=== PATIENT | female | born 1995 | race American Indian/Alaskan Native ===

== ENCOUNTER 2021-05-27 17:12 | Inpatient (IN) | payer MEDICAID ==
--- NOTE | 2021-05-27 18:01 | History and Physical Report ---
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 Risk Factors: Smoked Tobacco Use: Former smoker Cigarettes: Yes Year Quit: 10/2020 Smokeless Tobacco Use: Never Passive Smoke Exposure: no HIV High Risk Behavior: no Exercise: no Seatbelt Use: 100 % Alcohol Use: no Drug Use: no Past Medical History NEO Exposure: negative Infertility: negative Uterine Anomaly: negative Uterine Surgery (not C/S): negative Other Gynecologic Problems: negative Medical History Comments: neg Family Hx: DM-MGF CHF-mother Social Hx: single fob [employer] service Infection History Hx of STD: none HIV Risk Eval: no Varicella/Chicken Pox Status: Previous Disease Genetic History Congenital Heart Defect: Mom: no Dad: no Juliet Disease: Mom: no Dad: no Thalassemia Mom: no Dad: no Neural Tube Defect Mom: no Dad: no Down's Syndrome Mom: no Dad: no Jesus Manuel-Sachs Mom: no Dad: no Sickle Cell Disease/Trait Mom: no Dad: no Hemophilia Mom: no Dad: no Muscular Dystrophy Mom: no Dad: no Cystic Fibrosis Mom: no Dad: no [place] Chorea Mom: no Dad: no Mental Retardation Mom: no Dad: no Fragile X Mom: no Dad: no Other Genetic/Chromosomal Disorder Mom: no Dad: no Child w/other defect Mom: no Dad: no Enviromental Exposures Xray Exposure: no Medication, drug, or alcohol use since LMP: no Chemical/Other Exposure: no Exposure to Cat Liter: no Hx of Parvovirus (Fifth Disease): no Occupational Exposure to Children: none Active Medications (reviewed today): vitamin #49-iron-FA 6.75 mg iron- 200 mcg tablet ( vitamin #49-iron-fa) Tylenol 325 mg tablet (acetaminophen) aspirin 81 mg capsule (aspirin) ursodiol 300mg BID Current Allergies (reviewed today): No known allergies Past History Past Medical History: other (see HPI) Past Surgical History: other (see HPI) [employer] HELPER History: other (see HPI) Family/Genetic History: other (see HPI) Social history: other (see HPI) - Obstetrical History Expected Date of Delivery: 06/17/21 Actual Gestation: 37 Week(s) 0 Day(s) : 1 Para: 0 Hx # Term Pregnancies: 0 Number of Pregnancies: 0 Spontaneous Abortions: 0 Induced : 0 Number of Living Children: 0 Review of Systems All systems: negative Genitourinary: no vaginal bleeding, no leakage of fluid, no genital sores, no contractions - Physical Exam Breasts: Positive: deferred Lungs: Positive: Normal air movement Abdomen: Positive: normal appearance, soft. Negative: distention, tenderness, guarding Genitourinary (Female): Positive: normal external genitalia Vulva: both: normal Vagina: Positive: normal moisture Uterus: Positive: normal size, normal contour, other (gravid) - Obstetrical FHR comments: RN requested to apply efm and toco monitors Uterine Contraction Monitor Mode: Palpation Cervical Dilatation: 1 ( presentation cephalic) Cervical Effacement Percentage: 50 station: -3 Uterine Contraction Pattern: Absent Uterine Tone Measurement Phase: Resting Results All other labs normal. Tests: (1) Ct, Ng, Trich vag by YOUNG ([id number]) Order Note: Clinical Information: SRC:VR SRC:UR Chlamydia by YOUNG Negative Negative *1 Gonococcus by YOUNG Negative Negative *2 Trich vag by YOUNG Negative Negative *3 Tests: (2) Strep Gp B YOUNG ([id number]) ! Strep Gp B YOUNG Negative Negative *4 Tests: (1) Profile I ([id number]) Order Note: Clinical Information: SRC:UR HBsAg Screen Negative Negative *1 RPR Non Reactive Non Reactive *2 Rubella Antibodies, IgG [L] <0.90 index Immune >0.99 *3 Non-immune <0.90 Equivocal 0.90 - 0.99 Immune >0.99 ABO Grouping O *4 Rh Factor Positive *5 Please note: Prior records for this patient's ABO / Rh type are not available for additional verification. Antibody Screen Negative Negative *6 WBC [H] 13.6 x10E3/uL 3.4-10.8 *7 RBC 4.70 x10E6/uL 3.77-5.28 *8 Hemoglobin 12.8 g/dL 11.1-15.9 *9 Hematocrit 39.3 % 34.0-46.6 *10 MCV 84 fL 79-97 *11 MCH 27.2 pg 26.6-33.0 *12 MCHC 32.6 g/dL 31.5-35.7 *13 RDW 12.6 % 11.7-15.4 *14 Platelets 370 x10E3/uL 150-450 *15 Neutrophils 79 % Not Estab. *16 Lymphs 14 % Not Estab. *17 Monocytes 4 % Not Estab. *18 Eos 3 % Not Estab. *19 Basos 0 % Not Estab. *20 ! Immature Cells <No Reported Value> *21 Neutrophils (Absolute) [H] 10.6 x10E3/uL 1.4-7.0 *22 Lymphs (Absolute) 2.0 x10E3/uL 0.7-3.1 *23 Monocytes(Absolute) 0.6 x10E3/uL 0.1-0.9 *24 Eos (Absolute) 0.4 x10E3/uL 0.0-0.4 *25 Baso (Absolute) 0.1 x10E3/uL 0.0-0.2 *26 ! Immature Granulocytes 0 % Not Estab. *27 ! Immature Grans (Abs) 0.0 x10E3/uL 0.0-0.1 *28 ! NRBC <No Reported Value> *29 Hematology Comments: <No Reported Value> *30 Tests: (2) Comp. Metabolic Panel (14) ([id number]) Glucose 92 mg/dL 65-99 *31 BUN [L] 5 mg/dL 6-20 *32 Creatinine [L] 0.56 mg/dL 0.57-1.00 *33 ! eGFR If NonAfricn Am 128 mL/min/1.73 >59 *34 ! eGFR If Africn Am 148 mL/min/1.73 >59 *35 In accordance with recommendations from the NKF-ASN Task force, [facility] is in the process of updating its eGFR calculation to the 2020 CKD-EPI creatinine equation that estimates kidney function without a race variable. BUN/Creatinine Ratio 9 9- *36 Sodium 137 mmol/L 134-144 *37 Potassium 3.9 mmol/L 3.5-5.2 *38 Chloride 102 mmol/L 96-106 *39 Carbon Dioxide, Total 21 mmol/L 20-29 *40 Calcium 9.0 mg/dL 8.7-10.2 *41 Protein, Total [L] 5.8 g/dL 6.0-8.5 *42 Albumin [L] 3.1 g/dL 3.9-5.0 *43 Globulin, Total 2.7 g/dL 1.5-4.5 *44 A/G Ratio [L] 1.1 1.2-2.2 *45 Bilirubin, Total 0.3 mg/dL 0.0-1.2 *46 Alkaline Phosphatase [H] 122 IU/L 44-121 *47 Please note reference interval change AST (SGOT) [H] 47 IU/L 0-40 *48 ALT (SGPT) [H] 72 IU/L 0-32 *49 Tests: (3) Bile Acids, Fractionated LCMS ([id number]) ! Ursodeoxycholic Acids <0.10 umol/L *50 Reference Range: All Ages: <1.9 ! Cholic Acids [H] 6.0 umol/L *51 Reference Range: All Ages: <2.2 ! Chenodeoxycholic Acids 3.3 umol/L *52 Reference Range: All Ages: <5.8 ! Deoxycholic Acids 0.30 umol/L *53 Reference Range: All Ages: <3.3 ! Total Bile Acids [H] 9.6 umol/L *54 This test was developed and its performance characteristics determined by [facility]. It has not been cleared or approved by the Food and Drug Administration. Reference Range: All Ages: <9.2 Tests: (4) HIV Ag/Ab with Reflex ([id number]) HIV Screen 4th Generation wRfx Non Reactive Non Reactive *55 Tests: (5) Gest. Diabetes 1-Hr Screen ([id number]) ! Gestational Diabetes Screen 115 mg/dL 65-139 *56 According to ADA, a glucose threshold of >139 mg/dL after 50-gram load identifies approximately 80% of women with gestational diabetes mellitus, while the sensitivity is further increased to approximately 90% by a threshold of >129 mg/dL. Tests: (6) HCV Antibody reflex to YOUNG ([id number]) HCV Ab 0.1 s/co ratio 0.0-0.9 *57 Tests: (7) Interpretation: ([id number]) ! Interpretation: SPRCS *58 Negative Not infected with HCV, unless recent infection is suspected or other evidence exists to indicate HCV infection. Tests: (8) GGT ([id number]) GGT [H] 102 IU/L 0-60 *59 Tests: (9) Urine Culture, Routine ([id number]) Urine Culture, Routine Final report *60 Tests: (10) Result ([id number]) ! Result 1 No growth *61 Performed At: , [facility] [address] [place], [place] [id number] Adria Grimaldo MD Phone: [phone] Assessment and Plan @37wks presents today for scheduled IOL. Denies all complaints. SVE performed and pt tolerated well. Serial IOL and POC d/w pt. Questions encouraged and answered. Pt verbalizes understanding and agrees to POC. Pt may eat dinner now while being admitted and cervidil to be placed for cervical ripening by 1900. Dr Araujo to be made aware. - Patient Problems (1) 37 weeks gestation of Current Visit: Yes Status: Acute Plan to address problem: admit to labor initiate IV access continuous efm and toco monitor closely for changes in condition and notify provider PRN (2) Rubella non-immune status, antepartum Current Visit: Yes Status: Acute Plan to address problem: MMR to be ordered (3) Cholestasis during in third trimester Current Visit: Yes Status: Acute Plan to address problem: admission labs ordered
[2021-05-27] MEDS ORDERED: MINERAL OIL 30 ML ORAL LIQD PO PRN (18:06)
[2021-05-27] MEDS ORDERED: DINOPROSTONE 10 MG VAG SUPP VG SCH (18:06)
[2021-05-27] MEDS ORDERED: LOPERAMIDE 2 MG CAP PO PRN (18:06)
[2021-05-27] MEDS ORDERED: CARBOPROST TROMETHAMINE 250 MCG/1 ML INJ IM PRN (18:06)
[2021-05-27] MEDS ORDERED: BUTORPHANOL 2 MG/1 ML INJ IV PRN (18:06)
[2021-05-27] MEDS ORDERED: LIDOCAINE (2%) 20 MG/1 ML VIAL 20 ML MDV INFILTRATI ONE (18:06)
[2021-05-27] MEDS ORDERED: OXYTOCIN 10 UNIT/1 ML INJ IM PRN (18:06)
[2021-05-27] MEDS ORDERED: ePHEDrine SULFATE 50 MG/1 ML INJ IV PRN (18:06)
[2021-05-27] MEDS ORDERED: NalbUPHINE 10 MG/1 ML INJ IV PRN (18:06)
[2021-05-27] MEDS ORDERED: METHYLERGONOVINE MALEATE 0.2 MG/ML VIAL IM PRN (18:06)
[2021-05-27] MEDS ORDERED: TERBUTALINE 1 MG/1 ML INJ SUB-Q PRN (18:06)
[2021-05-27] MEDS ORDERED: miSOPROStol 200 MCG TAB PR PRN (18:06)
[2021-05-27] MEDS ORDERED: ONDANSETRON 4 MG/2 ML INJ IV PRN (18:06)
[2021-05-27] MEDS ORDERED: ACETAMINOPHEN 325 MG TAB PO PRN (18:06)
[2021-05-27] MEDS ORDERED: OXYTOCIN DRIP 30 UNITS/500 ML BAG IV SCH ×2 (19:00)
[2021-05-27 19:44] LABS: Hematocrit 32.4 % (30.3-42.9); Hemoglobin 11.4 gm/dl (10.1-14.3); Mean Corpuscular HGB Conc 35 % (30-34); Mean Corpuscular Volume 77 fl (79-97); Platelet Count 300 K/mm3 (140-440); Red Blood Count 4.19 M/mm3 (3.65-5.03); Red Cell Distribution Width 12.5 % (13.2-15.2)
[2021-05-27 19:57] LABS: Alanine Aminotransferase 32 units/L (7-56); Blood Urea Nitrogen 6 mg/dL (7-17); Hemolysis Index 0
[2021-05-27 19:58] LABS: BUN/Creatinine Ratio 10
[2021-05-27] MEDS: LACTATED RINGERS 1,000 ML IV SCH (23:22)
[2021-05-28] MEDS: LACTATED RINGERS 1,000 ML IV SCH ×3 (06:30→13:11)
--- NOTE | 2021-05-28 07:27 | Anesthesia Consultation ---
Anesthesia Consult and Med Hx Date of service: 05/28/21 - Airway Anesthetic Teeth Evaluation: Good ROM Head & Neck: Adequate Mental/Hyoid Distance: Adequate Mallampati Class: Class II Intubation Access Assessment: Probably Good - Pulmonary Exam CTA: Yes - Cardiac Exam Cardiac Exam: RRR - Pre-Operative Health Status ASA Pre-Surgery Classification: ASA3 Proposed Anesthetic Plan: Epidural - Pulmonary Hx Asthma: No COPD: No Hx Pneumonia: No - Cardiovascular System Hx Hypertension: No - Central Nervous System Hx Seizures: No Hx Psychiatric Problems: No - Endocrine Hx Renal Disease: No Hx End Stage Renal Disease: No Hx Hypothyroidism: No Hx Hyperthyroidism: No - Hematic Hx Anemia: No Hx Sickle Cell Disease: No - Other Systems Hx Alcohol Use: No Hx Obesity: Yes
[2021-05-28] MEDS ORDERED: NALOXONE 2 MG/2 ML INJ IV PRN (08:00)
[2021-05-28] MEDS ORDERED: fentaNYL-BUPIV 2 MCG/ML-0.125% 200 MCG/100 ML BAG EPIDURAL SCH (08:00)
[2021-05-28] MEDS: ePHEDrine SULFATE 50 MG/1 ML INJ IV PRN ×3 (08:47→08:51)
[2021-05-28] MEDS ORDERED: ePHEDrine SULFATE 50 MG/1 ML INJ IM PRN (09:00)
--- NOTE | 2021-05-28 09:05 | Progress Note ---
Assessment and Plan A: 25 y.o. @ 37.1 wks, IOL d/t cholestasis of . - Patient Problems (1) 37 weeks gestation of Current Visit: Yes Status: Acute Plan to address problem: Continue to monitor status through EFM. (2) Cholestasis during in third trimester Current Visit: Yes Status: Acute Plan to address problem: Continue IOL. Increase Pitocin per protocol. Will put in internal monitors if cervical exam remains unchanged in 3 hours. Anticipate . Subjective - Subjective Date of service: 05/28/21 Principal diagnosis: IUP @ 37.1 wks, IOL d/t cholestasis of Interval history: Pt is comfortable with epidural. Patient reports: movement normal, no new complaints, no loss of fluid, no vaginal bleeding, no contractions Objective - Vital Signs Vital Signs: Vital Signs - 12hr 05/27/21 05/27/21 05/27/21 21:06 21:11 21:16 Temperature Pulse Rate 83 85 91 H Respiratory Rate Blood Pressure Blood Pressure [Left] O2 Sat by Pulse 99 99 98 Oximetry O2 Sat by Pulse Oximetry [ Posterior Bilateral Throughout] 05/27/21 05/27/21 05/27/21 21:21 21:26 21:31 Temperature Pulse Rate 78 74 87 Respiratory Rate Blood Pressure Blood Pressure [Left] O2 Sat by Pulse 99 99 99 Oximetry O2 Sat by Pulse Oximetry [ Posterior Bilateral Throughout] 05/27/21 05/27/21 05/27/21 21:36 21:41 21:46 Temperature Pulse Rate 75 67 67 Respiratory Rate Blood Pressure Blood Pressure [Left] O2 Sat by Pulse 99 98 99 Oximetry O2 Sat by Pulse Oximetry [ Posterior Bilateral Throughout] 05/27/21 05/27/21 05/27/21 21:51 21:56 22:01 Temperature Pulse Rate 71 73 150 H Respiratory Rate Blood Pressure Blood Pressure [Left] O2 Sat by Pulse 99 98 82 L Oximetry O2 Sat by Pulse Oximetry [ Posterior Bilateral Throughout] 05/27/21 05/27/21 05/27/21 22:03 22:06 22:07 Temperature Pulse Rate 73 73 Respiratory Rate Blood Pressure 150/70 Blood Pressure [Left] O2 Sat by Pulse 93 99 Oximetry O2 Sat by Pulse Oximetry [ Posterior Bilateral Throughout] 05/27/21 05/27/21 05/27/21 22:12 22:17 22:22 Temperature Pulse Rate 87 73 64 Respiratory Rate Blood Pressure Blood Pressure [Left] O2 Sat by Pulse 93 98 100 Oximetry O2 Sat by Pulse Oximetry [ Posterior Bilateral Throughout] 05/27/21 05/27/21 05/27/21 22:25 22:27 22:32 Temperature Pulse Rate 79 68 79 Respiratory Rate Blood Pressure Blood Pressure [Left] O2 Sat by Pulse 76 L 100 100 Oximetry O2 Sat by Pulse Oximetry [ Posterior Bilateral Throughout] 05/27/21 05/27/21 05/27/21 22:35 22:37 22:42 Temperature Pulse Rate 83 72 80 Respiratory Rate Blood Pressure Blood Pressure [Left] O2 Sat by Pulse 87 100 100 Oximetry O2 Sat by Pulse Oximetry [ Posterior Bilateral Throughout] 05/27/21 05/27/21 05/27/21 22:47 22:52 23:07 Temperature Pulse Rate 64 65 94 H Respiratory Rate Blood Pressure 113/62 Blood Pressure [Left] O2 Sat by Pulse 100 100 97 Oximetry O2 Sat by Pulse Oximetry [ Posterior Bilateral Throughout] 05/27/21 05/27/21 05/27/21 23:12 23:17 23:22 Temperature Pulse Rate 70 75 67 Respiratory Rate Blood Pressure Blood Pressure [Left] O2 Sat by Pulse 97 97 97 Oximetry O2 Sat by Pulse Oximetry [ Posterior Bilateral Throughout] 05/27/21 05/27/21 05/27/21 23:27 23:32 23:34 Temperature 97.6 F Pulse Rate 73 86 Respiratory 18 Rate Blood Pressure Blood Pressure [Left] O2 Sat by Pulse 99 98 98 Oximetry O2 Sat by Pulse Oximetry [ Posterior Bilateral Throughout] 05/27/21 05/27/21 05/27/21 23:37 23:42 23:47 Temperature Pulse Rate 69 70 67 Respiratory Rate Blood Pressure Blood Pressure [Left] O2 Sat by Pulse 97 96 96 Oximetry O2 Sat by Pulse Oximetry [ Posterior Bilateral Throughout] 05/27/21 05/27/21 05/28/21 23:52 23:57 00:02 Temperature Pulse Rate 78 78 70 Respiratory Rate Blood Pressure Blood Pressure [Left] O2 Sat by Pulse 97 98 97 Oximetry O2 Sat by Pulse Oximetry [ Posterior Bilateral Throughout] 05/28/21 05/28/21 05/28/21 00:07 00:09 00:12 Temperature Pulse Rate 75 76 71 Respiratory Rate Blood Pressure 116/66 Blood Pressure [Left] O2 Sat by Pulse 96 97 Oximetry O2 Sat by Pulse Oximetry [ Posterior Bilateral Throughout] 05/28/21 05/28/21 05/28/21 00:17 00:22 00:27 Temperature Pulse Rate 80 82 77 Respiratory Rate Blood Pressure Blood Pressure [Left] O2 Sat by Pulse 96 97 98 Oximetry O2 Sat by Pulse Oximetry [ Posterior Bilateral Throughout] 05/28/21 05/28/21 05/28/21 00:32 00:37 00:42 Temperature Pulse Rate 85 84 79 Respiratory Rate Blood Pressure Blood Pressure [Left] O2 Sat by Pulse 96 97 97 Oximetry O2 Sat by Pulse Oximetry [ Posterior Bilateral Throughout] 05/28/21 05/28/21 05/28/21 00:47 00:52 00:57 Temperature Pulse Rate 75 78 75 Respiratory Rate Blood Pressure Blood Pressure [Left] O2 Sat by Pulse 98 96 98 Oximetry O2 Sat by Pulse Oximetry [ Posterior Bilateral Throughout] 05/28/21 05/28/21 05/28/21 01:02 01:07 01:12 Temperature Pulse Rate 82 84 92 H Respiratory Rate Blood Pressure Blood Pressure [Left] O2 Sat by Pulse 97 99 97 Oximetry O2 Sat by Pulse Oximetry [ Posterior Bilateral Throughout] 05/28/21 05/28/21 05/28/21 01:17 01:22 01:27 Temperature Pulse Rate 92 H 85 95 H Respiratory Rate Blood Pressure Blood Pressure [Left] O2 Sat by Pulse 98 98 98 Oximetry O2 Sat by Pulse Oximetry [ Posterior Bilateral Throughout] 05/28/21 05/28/21 05/28/21 01:32 01:37 01:42 Temperature Pulse Rate 83 83 91 H Respiratory Rate Blood Pressure Blood Pressure [Left] O2 Sat by Pulse 98 96 97 Oximetry O2 Sat by Pulse Oximetry [ Posterior Bilateral Throughout] 05/28/21 05/28/21 05/28/21 01:47 01:52 01:57 Temperature Pulse Rate 89 81 93 H Respiratory Rate Blood Pressure Blood Pressure [Left] O2 Sat by Pulse 97 98 99 Oximetry O2 Sat by Pulse Oximetry [ Posterior Bilateral Throughout] 05/28/21 05/28/21 05/28/21 02:02 02:07 02:12 Temperature Pulse Rate 91 H 85 84 Respiratory Rate Blood Pressure 112/63 Blood Pressure [Left] O2 Sat by Pulse 98 98 96 Oximetry O2 Sat by Pulse Oximetry [ Posterior Bilateral Throughout] 05/28/21 05/28/21 05/28/21 02:17 02:22 02:27 Temperature Pulse Rate 91 H 88 91 H Respiratory Rate Blood Pressure Blood Pressure [Left] O2 Sat by Pulse 97 97 97 Oximetry O2 Sat by Pulse Oximetry [ Posterior Bilateral Throughout] 05/28/21 05/28/21 05/28/21 02:32 02:37 02:42 Temperature Pulse Rate 91 H 79 98 H Respiratory Rate Blood Pressure Blood Pressure [Left] O2 Sat by Pulse 98 98 98 Oximetry O2 Sat by Pulse Oximetry [ Posterior Bilateral Throughout] 05/28/21 05/28/21 05/28/21 02:47 02:52 03:09 Temperature Pulse Rate 107 H 83 92 H Respiratory Rate Blood Pressure Blood Pressure [Left] O2 Sat by Pulse 97 97 97 Oximetry O2 Sat by Pulse Oximetry [ Posterior Bilateral Throughout] 05/28/21 05/28/21 05/28/21 03:10 03:14 03:19 Temperature Pulse Rate 94 H 87 87 Respiratory Rate Blood Pressure 105/56 Blood Pressure [Left] O2 Sat by Pulse 97 97 Oximetry O2 Sat by Pulse Oximetry [ Posterior Bilateral Throughout] 05/28/21 05/28/21 05/28/21 03:21 03:24 03:29 Temperature Pulse Rate 81 86 79 Respiratory Rate Blood Pressure Blood Pressure [Left] O2 Sat by Pulse 94 97 98 Oximetry O2 Sat by Pulse Oximetry [ Posterior Bilateral Throughout] 05/28/21 05/28/21 05/28/21 03:34 03:39 03:44 Temperature Pulse Rate 73 103 H 80 Respiratory Rate Blood Pressure Blood Pressure [Left] O2 Sat by Pulse 98 97 97 Oximetry O2 Sat by Pulse Oximetry [ Posterior Bilateral Throughout] 05/28/21 05/28/21 05/28/21 03:49 03:54 03:59 Temperature Pulse Rate 68 70 83 Respiratory Rate Blood Pressure Blood Pressure [Left] O2 Sat by Pulse 98 98 97 Oximetry O2 Sat by Pulse Oximetry [ Posterior Bilateral Throughout] 05/28/21 05/28/21 05/28/21 04:04 04:07 04:09 Temperature Pulse Rate 70 67 66 Respiratory Rate Blood Pressure 125/75 Blood Pressure [Left] O2 Sat by Pulse 97 98 Oximetry O2 Sat by Pulse Oximetry [ Posterior Bilateral Throughout] 05/28/21 05/28/21 05/28/21 04:14 04:19 04:24 Temperature Pulse Rate 66 72 76 Respiratory Rate Blood Pressure Blood Pressure [Left] O2 Sat by Pulse 99 98 96 Oximetry O2 Sat by Pulse Oximetry [ Posterior Bilateral Throughout] 05/28/21 05/28/21 05/28/21 04:29 04:34 04:39 Temperature Pulse Rate 82 86 83 Respiratory Rate Blood Pressure Blood Pressure [Left] O2 Sat by Pulse 96 98 98 Oximetry O2 Sat by Pulse Oximetry [ Posterior Bilateral Throughout] 05/28/21 05/28/21 05/28/21 04:44 04:49 04:54 Temperature Pulse Rate 90 131 H 80 Respiratory Rate Blood Pressure Blood Pressure [Left] O2 Sat by Pulse 98 98 98 Oximetry O2 Sat by Pulse Oximetry [ Posterior Bilateral Throughout] 05/28/21 05/28/21 05/28/21 04:59 05:04 05:07 Temperature Pulse Rate 84 94 H 101 H Respiratory Rate Blood Pressure Blood Pressure [Left] O2 Sat by Pulse 98 96 93 Oximetry O2 Sat by Pulse Oximetry [ Posterior Bilateral Throughout] 05/28/21 05/28/21 05/28/21 05:09 05:14 05:51 Temperature Pulse Rate 93 H 75 74 Respiratory Rate Blood Pressure Blood Pressure [Left] O2 Sat by Pulse 97 97 97 Oximetry O2 Sat by Pulse Oximetry [ Posterior Bilateral Throughout] 05/28/21 05/28/21 05/28/21 05:56 06:01 06:06 Temperature Pulse Rate 92 H 85 79 Respiratory Rate Blood Pressure Blood Pressure [Left] O2 Sat by Pulse 97 97 99 Oximetry O2 Sat by Pulse Oximetry [ Posterior Bilateral Throughout] 05/28/21 05/28/21 05/28/21 06:11 06:16 06:21 Temperature Pulse Rate 73 78 70 Respiratory Rate Blood Pressure Blood Pressure [Left] O2 Sat by Pulse 97 97 97 Oximetry O2 Sat by Pulse Oximetry [ Posterior Bilateral Throughout] 05/28/21 05/28/21 05/28/21 06:24 06:26 06:31 Temperature 97.9 F Pulse Rate 76 68 Respiratory 20 Rate Blood Pressure Blood Pressure [Left] O2 Sat by Pulse 97 99 98 Oximetry O2 Sat by Pulse Oximetry [ Posterior Bilateral Throughout] 05/28/21 05/28/21 05/28/21 06:36 06:38 06:39 Temperature Pulse Rate 88 77 70 Respiratory Rate Blood Pressure 116/66 Blood Pressure [Left] O2 Sat by Pulse 98 94 Oximetry O2 Sat by Pulse Oximetry [ Posterior Bilateral Throughout] 05/28/21 05/28/21 05/28/21 06:41 06:46 06:51 Temperature Pulse Rate 84 71 68 Respiratory Rate Blood Pressure Blood Pressure [Left] O2 Sat by Pulse 98 97 98 Oximetry O2 Sat by Pulse Oximetry [ Posterior Bilateral Throughout] 05/28/21 05/28/21 05/28/21 06:56 07:01 07:05 Temperature 97.7 F Pulse Rate 73 74 77 Respiratory 20 Rate Blood Pressure 117/73 Blood Pressure 117/73 [Left] O2 Sat by Pulse 100 99 99 Oximetry O2 Sat by Pulse 100 Oximetry [ Posterior Bilateral Throughout] 05/28/21 05/28/21 05/28/21 07:06 07:11 07:16 Temperature Pulse Rate 88 72 69 Respiratory Rate Blood Pressure Blood Pressure [Left] O2 Sat by Pulse 98 98 97 Oximetry O2 Sat by Pulse Oximetry [ Posterior Bilateral Throughout] 05/28/21 05/28/21 05/28/21 07:20 07:21 07:33 Temperature Pulse Rate 74 69 97 H Respiratory Rate Blood Pressure 106/60 Blood Pressure [Left] O2 Sat by Pulse 98 97 Oximetry O2 Sat by Pulse Oximetry [ Posterior Bilateral Throughout] 05/28/21 05/28/21 05/28/21 07:36 07:38 07:41 Temperature Pulse Rate 93 H 94 H 106 H Respiratory Rate Blood Pressure 128/76 129/79 Blood Pressure [Left] O2 Sat by Pulse 99 Oximetry O2 Sat by Pulse Oximetry [ Posterior Bilateral Throughout] 05/28/21 05/28/21 05/28/21 07:43 07:46 07:48 Temperature Pulse Rate 119 H 108 H 107 H Respiratory Rate Blood Pressure 131/64 Blood Pressure [Left] O2 Sat by Pulse 94 99 Oximetry O2 Sat by Pulse Oximetry [ Posterior Bilateral Throughout] 05/28/21 05/28/21 05/28/21 07:51 07:53 07:56 Temperature Pulse Rate 102 H 100 H 111 H Respiratory Rate Blood Pressure 132/65 122/57 Blood Pressure [Left] O2 Sat by Pulse 98 Oximetry O2 Sat by Pulse Oximetry [ Posterior Bilateral Throughout] 05/28/21 05/28/21 05/28/21 07:58 08:02 08:03 Temperature Pulse Rate 92 H 110 H 122 H Respiratory Rate Blood Pressure 109/59 Blood Pressure [Left] O2 Sat by Pulse 98 98 Oximetry O2 Sat by Pulse Oximetry [ Posterior Bilateral Throughout] 05/28/21 05/28/21 05/28/21 08:08 08:09 08:12 Temperature Pulse Rate 88 110 H 129 H Respiratory Rate Blood Pressure 103/62 Blood Pressure [Left] O2 Sat by Pulse 97 93 Oximetry O2 Sat by Pulse Oximetry [ Posterior Bilateral Throughout] 05/28/21 05/28/21 05/28/21 08:13 08:18 08:22 Temperature Pulse Rate 110 H 120 H 98 H Respiratory Rate Blood Pressure 97/53 Blood Pressure [Left] O2 Sat by Pulse 97 95 Oximetry O2 Sat by Pulse Oximetry [ Posterior Bilateral Throughout] 05/28/21 05/28/21 05/28/21 08:23 08:28 08:33 Temperature Pulse Rate 107 H 87 73 Respiratory Rate Blood Pressure Blood Pressure [Left] O2 Sat by Pulse 96 96 97 Oximetry O2 Sat by Pulse Oximetry [ Posterior Bilateral Throughout] 05/28/21 05/28/21 05/28/21 08:38 08:41 08:43 Temperature Pulse Rate 78 78 90 Respiratory Rate Blood Pressure 97/50 Blood Pressure [Left] O2 Sat by Pulse 97 93 97 Oximetry O2 Sat by Pulse Oximetry [ Posterior Bilateral Throughout] 05/28/21 05/28/21 05/28/21 08:44 08:48 08:49 Temperature Pulse Rate 91 H 103 H 108 H Respiratory Rate Blood Pressure 84/45 89/54 87/45 Blood Pressure [Left] O2 Sat by Pulse 98 Oximetry O2 Sat by Pulse Oximetry [ Posterior Bilateral Throughout] 05/28/21 05/28/21 05/28/21 08:52 08:53 08:57 Temperature Pulse Rate 95 H 118 H 68 Respiratory Rate Blood Pressure 105/59 91/53 127/59 Blood Pressure [Left] O2 Sat by Pulse 97 Oximetry O2 Sat by Pulse Oximetry [ Posterior Bilateral Throughout] 05/28/21 05/28/21 05/28/21 08:58 09:00 09:03 Temperature Pulse Rate 77 75 74 Respiratory Rate Blood Pressure 105/54 Blood Pressure [Left] O2 Sat by Pulse 98 99 Oximetry O2 Sat by Pulse Oximetry [ Posterior Bilateral Throughout] - Exam Breasts: deferred Cardiovascular: Regular rate Lungs: Normal air movement Abdomen: Present: normal appearance, soft FHR: category 1 Uterine Contraction Monitor Mode: External Cervical Dilatation: 3 (Per RN taking care of patient. ) Cervical Effacement Percentage: 60 station: -1 Uterine Contraction Pattern: Regular Uterine Tone Measurement Phase: Resting Uterine Contraction Intensity: Moderate - Labs Labs: Abnormal Labs 05/27/21 05/27/21 05/28/21 18:21 18:21 05:58 WBC 13.3 H MCV 77 L MCH 27 L MCHC 35 H RDW 12.5 L Carbon Dioxide 20 L BUN 6 L Total Protein 5.6 L Albumin 3.0 L Membranes Rupture Positive A Laboratory Results - last 24 hr 05/27/21 05/27/21 05/27/21 18:21 18:21 18:21 WBC 13.3 H RBC 4.19 Hgb 11.4 Hct 32.4 MCV 77 L MCH 27 L MCHC 35 H RDW 12.5 L Plt Count 300 Sodium Potassium Chloride Carbon Dioxide Anion Gap BUN Creatinine Estimated GFR BUN/Creatinine Ratio Glucose Calcium Total Bilirubin AST ALT Alkaline Phosphatase Total Protein Albumin Albumin/Globulin Ratio Membranes Rupture Syphilis IgG/IgM Ab Nonreactive Blood Type O POSITIVE Antibody Screen Negative 05/27/21 05/28/21 18:21 05:58 WBC RBC Hgb Hct MCV MCH MCHC RDW Plt Count Sodium 138 Potassium 3.8 Chloride 104.0 Carbon Dioxide 20 L Anion Gap 18 BUN 6 L Creatinine 0.6 Estimated GFR > 60 BUN/Creatinine Ratio 10 Glucose 91 Calcium 9.0 Total Bilirubin 0.20 AST 25 ALT 32 Alkaline Phosphatase 123 Total Protein 5.6 L Albumin 3.0 L Albumin/Globulin Ratio 1.2 Membranes Rupture Positive A Syphilis IgG/IgM Ab Blood Type Antibody Screen
--- NOTE | 2021-05-28 11:22 | Event Note ---
Date: 05/28/21 Primary RN requesting IUPC. Pitocin currently infusing @ 10mu. Cat 1 tracing, contractions not well identified. VSS. Upon entering room, pt resting comfortably in bed, lying right lateral with peanut ball in place. Epidural infusing, Zamarripa draining clear yellow urine. SVE: /-2. IUPC placed. Of note, 2-3cm open, non draining, non erythematous boil on interior L thigh. Pt denies history of genital warts/ HSV. States this appeared after shaving. Pt repositioned to [place]. Contractions noted to be q4-5 min, MVUs <100. Pitocin order changed from 2x2--> to 4x4. Titrate pitocin to 180-220 MVUs.
--- NOTE | 2021-05-28 16:17 | Procedure Note ---
OB Delivery Note - Delivery Date of Delivery: 05/28/21 Design Engineering Specialist: JAY WARD ([facility]) Estimated blood loss: other (350ml) - Vaginal Delivery position: OA Intrapartum events: other(please specify) (cholestasis) Delivery induction: oxytocin Delivery augmentation: pitocin Delivery monitor: external FHT, external uterine, internal uterine Route of delivery: Delivery placenta: spontaneous Episiotomy: none Delivery laceration: other (L periurethral hemostatic, not repaired ) Anesthesia: epidural Delivery comments: @1345 To bedside for late deceleration x2. VSS. SVE: c/c/+1. Pitocin currently infusing @ 16mu, return to Cat 1 tracing with repositioning to L lateral with peanut ball. Pushing deferred initially due to very dense epidural. @1445 c/c+2 Pushing initiated with contractions. Pitocin turned off during pushing stage. @1543 of vigorous male , dried and stimulated and immediately placed skin to skin with maternal abdomen. Delayed cord clamping x3.5 minutes, cord doubly clamped and cut by partner, Juan. Pitocin initiated. Intact delivery of Wen placenta. Left periurethral abrasion noted, hemostatic, not repaired. Fundus firm, midline, @u/u, moderate bleeding, no clots expressed. QBL: 250mL. Counts performed x2 and correct x2 with primary RN and surgical aide. Mother and dyad left in care of primary RN and WAQAS nurse @1605. - Infant A at 1 minute: 8 at 5 minutes: 9 Gender: Male (Juan Buenrostro, 2870g)
[2021-05-28] MEDS ORDERED: ONDANSETRON 4 MG/2 ML INJ IV PRN (20:45)
[2021-05-28] MEDS ORDERED: PROMETHAZINE 25 MG TAB PO PRN (20:45)
[2021-05-28] MEDS ORDERED: WITCH HAZEL/ GLYCERIN PAD TP PRN (20:45)
[2021-05-28] MEDS ORDERED: diphenhydrAMINE 25 MG CAP PO PRN (20:45)
[2021-05-28] MEDS ORDERED: BENZOCAINE/MENTHOL 20/0.5% TOP SPRAY 56 GM TP PRN (20:45)
[2021-05-28] MEDS ORDERED: oxyCODONE /ACETAMINOPHEN 5-325MG TAB PO PRN (20:45)
[2021-05-28] MEDS ORDERED: ACETAMINOPHEN 325 MG TAB PO PRN (20:45)
[2021-05-28] MEDS ORDERED: OXYTOCIN DRIP 30 UNITS/500 ML BAG IV SCH (20:45)
[2021-05-28] MEDS ORDERED: LANOLIN/ZINC/DIMETHICONE (LANSINOH) 7 GM TP PRN ×2 (20:45)
[2021-05-28] MEDS ORDERED: MAGNESIUM HYDROXIDE (MOM) ORAL LIQD UDC PO PRN (20:45)
[2021-05-28] MEDS ORDERED: PROMETHAZINE 25 MG RECT SUPP PR PRN (20:45)
[2021-05-28] MEDS ORDERED: miSOPROStol 100 MCG TAB PR PRN (20:45)
[2021-05-28] MEDS: DOCUSATE SODIUM 100 MG CAP PO SCH (22:29)
[2021-05-28] MEDS: IBUPROFEN 800 MG TAB PO SCH (22:30)
[2021-05-28] MEDS: SENNOSIDES/DOCUSATE SODIUM 8.6/50 MG TAB PO SCH (23:33)
[2021-05-29] MEDS: IBUPROFEN 800 MG TAB PO SCH ×3 (05:21→20:26)
[2021-05-29 05:27] LABS: Hematocrit 29.7 % (30.3-42.9); Hemoglobin 10.3 gm/dl (10.1-14.3)
--- NOTE | 2021-05-29 07:41 | Progress Note ---
Assessment and Plan A: 25 y.o. s/p @term. - Patient Problems (1) (normal spontaneous vaginal delivery) Current Visit: Yes Status: Acute Plan to address problem: Continue plan of care, including passing gas. Manage pain and continue to monitor blood pressures. Anticipate discharge home on 05/30/2021. Subjective - Subjective Date of service: 05/29/21 Principal diagnosis: on 05/28/21 Patient reports: appetite normal, voiding normally, pain well controlled (report mid back pain -07/15; rec'd continued pain medication, increased ambulation and heat), ambulating normally [place]: doing well, bottle feeding Objective - Vital Signs Latest vital signs: Vital Signs Temp Pulse Resp BP BP Pulse Ox Pulse Ox 05/29/21 04:48 98.6 F 96 H 20 114/50 96 05/29/21 00:30 98.8 F 111 H 20 96/48 96 05/28/21 19:45 98.0 F 92 H 20 113/62 98 98 05/28/21 19:44 89 18 113/62 95 05/28/21 19:28 76 112/72 05/28/21 17:45 125 H 117/61 05/28/21 17:44 113 H 98 05/28/21 17:29 105 H 98 05/28/21 17:24 110 H 97 05/28/21 17:19 105 H 98 05/28/21 17:15 108 H 114/55 05/28/21 17:14 122 H 99 05/28/21 17:09 91 H 97 05/28/21 17:04 74 99 05/28/21 17:00 82 111/54 05/28/21 16:59 80 98 05/28/21 16:54 93 H 99 05/28/21 16:49 99 H 98 05/28/21 16:44 91 H 99 05/28/21 16:39 76 99 05/28/21 16:34 81 98 05/28/21 16:33 96 H 122/79 05/28/21 16:29 88 99 05/28/21 16:24 89 96 05/28/21 16:23 86 88 05/28/21 16:18 101 H 96 05/28/21 16:15 106 H 109/56 05/28/21 16:13 111 H 98 05/28/21 16:08 121 H 96 05/28/21 16:03 100 H 96 05/28/21 16:00 106 H 108/56 05/28/21 15:58 111 H 97 05/28/21 15:53 129 H 97 05/28/21 15:48 123 H 97 05/28/21 15:45 173 H 109/67 05/28/21 15:43 148 H 98 05/28/21 15:38 123 H 97 05/28/21 15:33 154 H 98 05/28/21 15:31 109 H 89 05/28/21 15:28 137 H 100 05/28/21 15:23 136 H 98 05/28/21 15:18 113 H 99 05/28/21 15:13 151 H 98 05/28/21 15:08 134 H 99 05/28/21 15:05 98.9 F 05/28/21 15:03 179 H 100 05/28/21 14:58 142 H 99 05/28/21 14:53 80 98 05/28/21 14:48 108 H 98 05/28/21 14:45 95 H 131/69 05/28/21 14:43 94 H 99 05/28/21 14:38 80 99 05/28/21 14:33 83 98 05/28/21 14:30 99 H 133/64 05/28/21 14:28 81 98 05/28/21 14:23 89 98 05/28/21 14:18 86 99 05/28/21 14:15 102 H 138/69 05/28/21 14:13 107 H 99 05/28/21 14:08 88 100 05/28/21 14:03 106 H 99 05/28/21 14:02 114 H 132/80 05/28/21 13:58 113 H 98 05/28/21 13:53 111 H 98 05/28/21 13:50 120 H 154/75 05/28/21 13:48 126 H 99 05/28/21 13:43 120 H 99 05/28/21 13:38 140 H 100 05/28/21 13:33 122 H 99 05/28/21 13:31 95 H 113/61 05/28/21 13:28 94 H 98 05/28/21 13:23 80 97 05/28/21 13:18 80 97 05/28/21 13:15 100 H 117/66 05/28/21 13:13 108 H 97 05/28/21 13:08 79 98 05/28/21 13:03 110 H 98 05/28/21 13:00 112 H 115/63 05/28/21 12:58 116 H 98 05/28/21 12:53 90 98 05/28/21 12:48 97 H 97 05/28/21 12:46 99 H 118/64 05/28/21 12:43 87 98 05/28/21 12:38 100 H 98 05/28/21 12:33 113 H 97 05/28/21 12:31 104 H 116/64 05/28/21 12:28 122 H 98 05/28/21 12:23 116 H 98 05/28/21 12:18 107 H 97 05/28/21 12:15 117 H 113/56 05/28/21 12:13 105 H 96 05/28/21 12:08 113 H 97 05/28/21 12:04 81 92 05/28/21 12:03 85 96 05/28/21 12:01 103 H 113/60 05/28/21 11:58 117 H 99 05/28/21 11:53 82 98 05/28/21 11:48 81 97 05/28/21 11:45 91 H 108/59 05/28/21 11:43 114 H 97 05/28/21 11:38 86 97 05/28/21 11:33 83 97 05/28/21 11:31 106 H 111/61 05/28/21 11:28 101 H 97 05/28/21 11:23 91 H 98 05/28/21 11:18 91 H 98 05/28/21 11:16 104 H 108/58 05/28/21 11:13 120 H 99 05/28/21 11:08 122 H 99 05/28/21 11:03 90 99 05/28/21 11:00 75 114/58 05/28/21 10:58 116 H 100 05/28/21 10:53 70 97 05/28/21 10:48 79 99 05/28/21 10:45 72 119/66 05/28/21 10:43 73 99 05/28/21 10:38 74 99 04/23/22 10:33 82 98 05/28/21 10:32 84 132/71 05/28/21 10:28 72 99 05/28/21 10:23 82 97 05/28/21 10:18 69 98 05/28/21 10:15 66 114/63 05/28/21 10:13 70 99 05/28/21 10:08 88 99 05/28/21 10:07 97.8 F 05/28/21 10:03 71 99 05/28/21 10:01 71 101/55 05/28/21 09:58 100 H 97 05/28/21 09:53 88 98 05/28/21 09:48 95 H 98 05/28/21 09:46 108 H 97/49 05/28/21 09:43 88 100 05/28/21 09:38 79 99 05/28/21 09:33 74 98 05/28/21 09:31 78 108/59 05/28/21 09:28 72 98 05/28/21 09:23 68 99 05/28/21 09:18 68 98 05/28/21 09:15 68 105/52 05/28/21 09:13 67 98 05/28/21 09:08 82 98 05/28/21 09:03 74 99 05/28/21 09:00 75 105/54 05/28/21 08:58 77 98 05/28/21 08:57 68 127/59 05/28/21 08:53 118 H 91/53 97 05/28/21 08:52 95 H 105/59 05/28/21 08:49 108 H 87/45 05/28/21 08:48 103 H 89/54 98 05/28/21 08:44 91 H 84/45 05/28/21 08:43 90 97/50 97 05/28/21 08:41 78 93 05/28/21 08:38 78 97 05/28/21 08:33 73 97 05/28/21 08:28 87 96 05/28/21 08:23 107 H 96 05/28/21 08:22 98 H 97/53 05/28/21 08:18 120 H 95 05/28/21 08:13 110 H 97 05/28/21 08:12 129 H 103/62 05/28/21 08:09 110 H 93 05/28/21 08:08 88 97 05/28/21 08:03 122 H 98 05/28/21 08:02 110 H 109/59 05/28/21 07:58 92 H 98 05/28/21 07:56 111 H 122/57 05/28/21 07:53 100 H 98 05/28/21 07:51 102 H 132/65 05/28/21 07:48 107 H 99 05/28/21 07:46 108 H 131/64 05/28/21 07:43 119 H 94 05/28/21 07:41 106 H 129/79 Intake and Output 05/28/21 05/29/21 05/29/21 22:59 06:59 14:59 Intake Total 600 Output Total 1300 400 Balance -1300 200 Intake: Oral 360 Intake, Free Water 240 Output: Urine 1300 400 Uretheral (Zamarripa) 400 Void 900 400 Other: Total, Intake Amount 240 Total, Output Amount 300 400 - Exam Narrative Exam: PPD1 from an uncomplicated . Denies chest pain, SOB, headaches, vision changes and NVD. VSS. Ambulating and voiding without difficulty. Has not yet passed gas or had bowel movement. Good appetite. Fundus firm, midline, below umbilicus, scant lochia without clots noted on peripad in place since 299. Back pain at epidural site 06/14, partially relieved with current medication regimen. Rec'd increased ambulation and heat. Currently bottle feeding. Cardiovascular: Present: Regular rate Lungs: Present: Normal air movement Abdomen: Present: normal appearance, soft Vulva: both: normal Uterus: Present: normal, firm, fundal height below umbilicus Extremities: Present: normal - Labs Labs: H&H: 10.3/29.7
--- NOTE | 2021-05-29 08:26 | Post Anesthesia Evaluation ---
- Post Anesthesia Evaluation Patient Participated: Yes Airway Patent: Yes Stable Respiratory Function: Yes Nausea/Vomiting: No Temp > 96.8F: Yes Pain Manageable: Yes Adequeate Hydration: Yes Anesthesia Complications: No Block Receding Appropriately: Yes
[2021-05-29] MEDS: SENNOSIDES/DOCUSATE SODIUM 8.6/50 MG TAB PO SCH (09:00)
[2021-05-29] MEDS: DOCUSATE SODIUM 100 MG CAP PO SCH ×2 (10:12→22:08)
[2021-05-29] MEDS: PRENATAL VIT27-FE FUMARATE-FOLIC ACID VIT TAB PO SCH (10:12)
[2021-05-29] MEDS ORDERED: MEASLES, MUMPS & RUBELLA 12,500 UNIT/0.5 ML VACCINE SUB-Q ONE (16:20)
[2021-05-29] MEDS ORDERED: TETANUS,DIPH,PERTUSS(ACELL) VACCINE 0.5 ML SYRINGE IM ONE (16:22)
[2021-05-30] MEDS: SENNOSIDES/DOCUSATE SODIUM 8.6/50 MG TAB PO SCH (05:15)
[2021-05-30] MEDS: IBUPROFEN 800 MG TAB PO SCH ×2 (05:17→12:47)
--- NOTE | 2021-05-30 08:04 | Discharge Summary ---
Providers - Providers Date of Admission: 05/27/21 17:13 Date of discharge: 05/30/21 Attending physician: GOLDEN ARDON Primary care physician: GOLDEN ARDON Hospitalization Reason for admission: induction of labor, IUP at term Delivery: Episiotomy: none Laceration: other (periurethral) Other procedures: none complications: none Discharge diagnosis: IUP at term delivered [place] baby: male Condition at discharge: Good Disposition: 01 HOME / SELF CARE / HOMELESS - Discharge Diagnoses (1) (normal spontaneous vaginal delivery) Status: Acute Plan - Discharge Medications Prescriptions: Lidocain2.5%/Prilocai2.5% [Emla] 1 applic TP ONCE #1 tube - Provider Discharge Summary Activity: routine, no sex for 6 weeks, no heavy lifting 4 weeks, no strenuous exercise Diet: routine Instructions: routine Additional instructions: [] Smoking cessation referral if applicable(refer to patient education folder for contact #) [] Refer to [facility]'s [facility] Booklet Call your doctor immediately for: * Fever > 100.5 * Heavy vaginal bleeding ( >1 pad per hour) * Severe persistent headache * Shortness of breath * Reddened, hot, painful area to leg or breast * * Congratulations! Please call [phone] and schedule a visit with blood pressure check in 1 week. Please also call and schedule your elective circumcision, if desired. Bring the prescription with you. Do not apply medication before the appointment. Thank you! - Follow up plan Follow up: GOLDEN ARDON MD [Primary Care Provider] - 7 Days
[2021-05-30] MEDS: DOCUSATE SODIUM 100 MG CAP PO SCH (10:06)
[2021-05-30] MEDS: PRENATAL VIT27-FE FUMARATE-FOLIC ACID VIT TAB PO SCH (10:06)
[2021-05-30 13:05] VITALS: BP 116/72
== END 2021-05-30 13:50 | disposition home or self-care (01) | DRG 775 ==
LOC: TRG 17:12 → UNDOADMIN 17:13 → LD 17:13 → TRG 17:59 → LD 05-28 17:13 → OB 05-28 20:14
PROVIDERS: ADMIT Obstetrics & Gynecology; ATTEND Obstetrics & Gynecology
PROC: 10E0XZZ Delivery of Products of Conception, External Approach (ICD-10-PCS; principal; 2021-05-28)
PROC: 10H07YZ Insertion of Other Device into Products of Conception, Via Natural or Artificial Opening (ICD-10-PCS; 2021-05-28)
PROC: 3E033VJ Introduction of Other Hormone into Peripheral Vein, Percutaneous Approach (ICD-10-PCS; 2021-05-28)
PROC: 3E0R3BZ Introduction of Anesthetic Agent into Spinal Canal, Percutaneous Approach (ICD-10-PCS; 2021-05-28)
PROC: 00HU33Z Insertion of Infusion Device into Spinal Canal, Percutaneous Approach (ICD-10-PCS; 2021-05-28)
PROC: 3E0234Z Introduction of Serum, Toxoid and Vaccine into Muscle, Percutaneous Approach (ICD-10-PCS; 2021-05-29)
PROC: 3E0134Z Introduction of Serum, Toxoid and Vaccine into Subcutaneous Tissue, Percutaneous Approach (ICD-10-PCS; 2021-05-29)
DX: O26.62 Liver and biliary tract disorders in childbirth (principal); K83.1 Obstruction of bile duct; Z3A.37 37 weeks gestation of pregnancy; Z37.0 Single live birth; Z82.49 Family history of ischemic heart disease and other diseases of the circulatory system; Z83.3 Family history of diabetes mellitus; Z87.891 Personal history of nicotine dependence; O99.214 Obesity complicating childbirth; O76 Abnormality in fetal heart rate and rhythm complicating labor and delivery; O71.82 Other specified trauma to perineum and vulva; Z20.822 Contact with and (suspected) exposure to COVID-19; Z23 Encounter for immunization
CPT/HCPCS: 36415; 59200; 80053; 82239; 84112; 85014; 85018; 85027; 86592; 86850; 86900; 86901; 88307; G0378; J3490; J0595; J2405; J2590; J7120; U0003

== ENCOUNTER 2021-06-06 15:41 | Observation (INO) | payer MEDICAID ==
--- NOTE | 2021-06-06 21:04 | Emergency Department Report ---
ED General Adult HPI - General Chief complaint: Extremity Problem,Nontraumatic Stated complaint: SOB/SWOLLEN FEET Time Seen by Provider: 06/06/21 21:01 Source: patient, RN notes reviewed, old records reviewed Mode of arrival: Ambulatory Limitations: Physical Limitation - History of Present Illness Initial comments: During the history and physical examination, I am chaperoned by Yuki Funk This is a 25-year-old female, who recently delivered at this hospital, presenting to the ER today with a complaint of headache, shortness of breath, orthopnea, lower extremity swelling, and right lateral thigh pain. No history of hypertension or preeclampsia that she is aware of. Also describes nonspecific binocular visual disturbance. No chest pain, neck pain, hematemesis of bright red blood per rectum. No dysuria. -: Gradual, days(s) Location: head, left, right, lower extremity Severity scale (0 -10): 7 Consistency: constant Improves with: rest Worsens with: movement - Related Data Home Medications Medication Instructions Recorded Confirmed Last Taken Aspirin [Vazalore] 81 mg PO DAILY 05/28/21 05/28/21 05/27/21 Vit-Fe Fumar-FA [ 1 tab PO QDAY 05/28/21 05/28/21 05/27/21 Vitamin] ursodioL [Ursodiol] 300 mg PO DAILY 05/28/21 05/28/21 05/27/21 Previous Rx's Medication Instructions Recorded Last Taken Type Lidocain2.5%/Prilocai2.5% [Emla] 1 applic TP ONCE #1 tube 05/29/21 Unknown Rx Allergies Allergy/AdvReac Type Severity Reaction Status Date / Time No Known Allergies Allergy Unverified 05/27/21 18:19 ED Review of Systems ROS: Stated complaint: SOB/SWOLLEN FEET Other details as noted in HPI Constitutional: malaise, weakness. denies: fever ENT: denies: epistaxis Respiratory: shortness of breath, SOB with exertion, SOB at rest Cardiovascular: edema Gastrointestinal: denies: abdominal pain, hematemesis, melena, hematochezia Musculoskeletal: arthralgia, myalgia Neurological: headache, weakness Psychiatric: anxiety Hematological/Lymphatic: denies: easy bleeding ED Past Medical Hx - Past Medical History Hx Hypertension: No Hx Congestive Heart Failure: No Hx Diabetes: No Hx Deep Vein Thrombosis: No Hx Renal Disease: No Hx Sickle Cell Disease: No Hx Seizures: No Hx Asthma: No Hx COPD: No Hx HIV: No - Social History Smoking Status: Former Smoker - Medications Home Medications: Home Medications Medication Instructions Recorded Confirmed Last Taken Type Aspirin [Vazalore] 81 mg PO DAILY 05/28/21 05/28/21 05/27/21 History Vit-Fe Fumar-FA [ 1 tab PO QDAY 05/28/21 05/28/21 05/27/21 History Vitamin] ursodioL [Ursodiol] 300 mg PO DAILY 05/28/21 05/28/21 05/27/21 History Lidocain2.5%/Prilocai2.5% [Emla] 1 applic TP ONCE #1 tube 05/29/21 Unknown Rx ED Physical Exam - General Limitations: No Limitations General appearance: alert, anxious, obese - Head Head exam: Present: atraumatic, normocephalic - Eye Eye exam: Present: normal appearance, EOMI. Absent: nystagmus - ENT ENT exam: Present: normal exam, normal orophraynx, mucous membranes moist, normal external ear exam - Neck Neck exam: Present: normal inspection, full ROM. Absent: tenderness, meningismus - Respiratory Respiratory exam: Present: decreased breath sounds. Absent: respiratory distress, wheezes, rales, rhonchi, stridor - Cardiovascular Cardiovascular Exam: Present: regular rate, normal rhythm, normal heart sounds. Absent: bradycardia, tachycardia, irregular rhythm, systolic murmur, diastolic murmur, rubs, gallop - GI/Abdominal GI/Abdominal exam: Present: soft. Absent: distended, tenderness, guarding, rebound, rigid, pulsatile mass - Extremities Exam Extremities exam: Present: normal inspection, full ROM, pedal edema (2-3+ edema in the bilateral lower extremity), other (2+ pulses noted in the bilateral upper and lower extremities. There is no palpable cord. negative Homans sign. Muscular compartments are soft. The pelvis is stable.). Absent: calf tenderness - Back Exam Back exam: Present: normal inspection. Absent: tenderness, CVA tenderness (R), CVA tenderness (L), paraspinal tenderness, vertebral tenderness - Neurological Exam Neurological exam: Present: alert, oriented X3, normal gait, other (No facial droop. Tongue midline. Extraocular movements intact bilaterally. Facial se nsation intact to light touch in V1, V2, V3 distribution bilaterally. 5 and a 5 strength in 4 extremities. Sensation intact to light touch in 4 extremities.). Absent: motor sensory deficit - Psychiatric Psychiatric exam: Present: anxious - Skin Skin exam: Present: warm, dry, intact, normal color. Absent: rash ED Course Vital Signs 06/06/21 06/06/21 17:55 21:53 Temperature 97.8 F Pulse Rate 74 72 Respiratory 18 Rate Blood Pressure 138/72 Blood Pressure 160/90 [Right] O2 Sat by Pulse 98 Oximetry - Reevaluation(s) Reevaluation #1: 06/06/21 22:15 Differential diagnosis, including but not limited to: cardiomyopathy, DVT, pulmonary embolism, preeclampsia, intracranial hemorrhage Assessment and plan: 25-year-old female presenting with probable cardiomyopathy, and/or preeclampsia. She has lower extremity edema, hypertension. She also describes headache and nonspecific visual disturbance. Start patient on magnesium, give hydralazine. EKG nonspecific. Obtain CT scan of the brain, CT scan of the chest. Admit patient to the medical service with GEOTECHNICAL OPERATING ENGINEER to follow in consultation. Discussed this with the patient. She is agreeable to the plan of care. Currently awaiting callback from GEOTECHNICAL OPERATING ENGINEER. 06/06/21 22:22 Discussed the patient's history, physical, laboratory studies and clinical impression with nurse electric fan assembler Kemi, working with GEOTECHNICAL OPERATING ENGINEER Dr Kimble They are in agreement with the plan of care, GEOTECHNICAL OPERATING ENGINEER will follow in consultation, as patient likely has decompensated cardiomyopathy and evidence of congestive heart failure, admit to medicine 06/06/21 23:21 The patient is reassessed. CT scan brain negative for acute findings. CTA chest suggests congestive heart failure without pulmonary embolism. Patient feels markedly improved. Verbal report received from lead neurodiagnostic technologist, bilateral lower extremity study negative for DVT. Patient updated on probable diagnosis of preeclampsia with superimposed cardiomyopathy/CHF. She is agreeable to admission and hospitalization. She states marked improvement in her symptoms. Hospital physician, Dr. Rivas to ADMIT to [facility] ED Medical Decision Making - Lab Data Result diagrams: 06/06/21 21:36 06/06/21 21:36 Vital Signs 06/06/21 06/06/21 17:55 21:53 Temperature 97.8 F Pulse Rate 74 72 Respiratory 18 Rate Blood Pressure 138/72 Blood Pressure 160/90 [Right] O2 Sat by Pulse 98 Oximetry Lab Results 06/06/21 Range/Units 21:36 WBC 10.6 (4.5-11.0) K/mm3 RBC 4.58 (3.65-5.03) M/mm3 Hgb 12.0 (10.1-14.3) gm/dl Hct 36.2 (30.3-42.9) % MCV 79 (79-97) fl MCH 26 L (28-32) pg MCHC 33 (30-34) % RDW 12.8 L (13.2-15.2) % Plt Count 487 H (140-440) K/mm3 Lymph % (Auto) 23.8 (13.4-35.0) % Trinity % (Auto) 6.3 (0.0-7.3) % Eos % (Auto) 4.0 (0.0-4.3) % Baso % (Auto) 1.1 (0.0-1.8) % Lymph # (Auto) 2.5 (1.2-5.4) K/mm3 Trinity # (Auto) 0.7 (0.0-0.8) K/mm3 Eos # (Auto) 0.4 (0.0-0.4) K/mm3 Baso # (Auto) 0.1 (0.0-0.1) K/mm3 Seg Neutrophils % 64.8 (40.0-70.0) % Seg Neutrophils # 6.9 (1.8-7.7) K/mm3 - EKG Data -: EKG Interpreted by Mo EKG shows normal: sinus rhythm Rate: normal - EKG Data When compared to previous EKG there are: previous EKG unavailable 06/06/21 22:12 EKG is interpreted at 21: 34 Sinus rhythm, 67 bpm. Normal axis, normal intervals, biphasic T waves V2, unremarkable EKG, not a STEMI. No prior for comparison. - Radiology Data Radiology results: pending, report reviewed, image reviewed CHEST 1 VIEW 06/06/2021 9:14 PM INDICATION / CLINICAL INFORMATION: Dyspnea. Lower extremity edema. COMPARISON: None available. FINDINGS: SUPPORT DEVICES: None. HEART / MEDIASTINUM: No significant abnormality. LUNGS / PLEURA: There are nonspecific bibasilar opacities. The upper lungs are clear. No significant pleural effusion. No pneumothorax. ADDITIONAL FINDINGS: No significant additional findings. IMPRESSION: Bibasilar opacities are favored to represent atelectasis. Pneumonia is a less likely consideration. Signer Name: Milton Bee MD Signed: 06/06/2021 8:34 PM Workstation Name: [id number] CT HEAD WITHOUT CONTRAST INDICATION / CLINICAL INFORMATION: Post- headache. TECHNIQUE: CT head was performed without administration of intravenous contrast. All CT scans at this location are performed using CT dose reduction for ALARA by means of automated exposure control. COMPARISON: None available. FINDINGS: CEREBRAL HEMISPHERES: There is no evidence of large territorial infarction or significant abnormality of nolan-white matter differentiation. Ventricles within normal limits. No midline shift. Basal cisterns patent. HEMORRHAGE: None. CEREBELLUM / BRAINSTEM: No significant abnormality. ORBITS: No significant abnormality. SOFT TISSUES: No significant abnormality. SKULL: No significant abnormality. PARANASAL SINUSES / MASTOID AIR CELLS: Partial opacification of multiple anterior ethmoid air cells. Small mucous retention cyst right maxillary sinus. ADDITIONAL FINDINGS: None. IMPRESSION: 1. No acute intracranial abnormality. Signer Name: Beny Patel II, MD Signed: 06/06/2021 10:02 PM Workstation Name: [id number] CTA CHEST WITH CONTRAST INDICATION / CLINICAL INFORMATION: Dyspnea, Post- , CHF vs P.E.. TECHNIQUE: Axial CT images were obtained through the chest after injection of 100 cc Omnipaque 350 IV contrast. 3 plane MIP and/or 3D reconstructions were produced. All CT scans at this location are performed using CT dose reduction for ALARA by means of automated exposure control. COMPARISON: None available. FINDINGS: VASCULAR FINDINGS: PULMONARY ARTERY: Pulmonary artery is normal in size. No filling defects are present compatible with pulmonary artery embolus.. THORACIC AORTA: No significant abnormality. CORONARY ARTERY CALCIFICATION: Absent -- None. NONVASCULAR FINDINGS: LOWER NECK: Soft tissues and musculature of the lower neck demonstrate no significant abnormality. The thyroid demonstrates no significant abnormality. HEART: No significant abnormality. MEDIASTINUM / JAKE: Small amount residual thymus is demonstrated in the anterior mediastinum. ESOPHAGUS: No significant abnormality. LYMPH NODES: No adenopathy within the axilla, mediastinum, or jake. LUNGS: Lungs are blurred by motion. Bilateral dependent pleural effusions are present with some pleural fluid extending within the left major fissure. PLEURA: No pneumothorax. THORACIC SOFT TISSUES: No significant abnormality of the chest wall or upper thoracic musculature. BONES: No significant skeletal abnormalities. ADDITIONAL CHEST FINDINGS: Appearance of the breast soft tissues compatible with . UPPER ABDOMEN: Vicarious excretion of contrast versus layering small gallstones. IMPRESSION: 1. No CT evidence for pulmonary embolism. 2. Small dependent bilateral pleural effusions slightly larger on the left than right. 3. Gallstones are not excluded. Signer Name: Beny Patel II, MD Signed: 06/06/2021 10:11 PM Workstation Name: [id number] Critical Care Time: Yes Critical care time in (mins) excluding proc time.: 35 Critical care attestation.: If time is entered above; I have spent that time in minutes in the direct care of this critically ill patient, excluding procedure time. ED Disposition Clinical Impression: cardiomyopathy, Preeclampsia in period, Headache, Swelling of lower extremity, Shortness of breath Disposition: 09 ADMITTED INPATIENT Is pt being admited?: Yes Does the pt Need Aspirin: No Condition: Serious Instructions: Hypertension (ED) Referrals: PRIMARY CARE, [Primary Care Provider] - 3-5 Days
[2021-06-06] MEDS ORDERED: diphenhydrAMINE 50 MG/ML VIAL IV ONE (21:10)
[2021-06-06] MEDS ORDERED: METOCLOPRAMIDE 10 MG/2 ML INJ IV ONE (21:10)
--- NOTE | 2021-06-06 21:38 | XRay Report ---
CHEST 1 VIEW 06/06/2021 9:14 PM INDICATION / CLINICAL INFORMATION: Dyspnea. Lower extremity edema. COMPARISON: None available. FINDINGS: SUPPORT DEVICES: None. HEART / MEDIASTINUM: No significant abnormality. LUNGS / PLEURA: There are nonspecific bibasilar opacities. The upper lungs are clear. No significant pleural effusion. No pneumothorax. ADDITIONAL FINDINGS: No significant additional findings. IMPRESSION: Bibasilar opacities are favored to represent atelectasis. Pneumonia is a less likely consideration. Signer Name: Milton Bee MD Signed: 06/06/2021 9:34 PM Workstation Name: [id number]
[2021-06-06] MEDS ORDERED: hydrALAZINE 20 MG/1 ML INJ IV ONE (21:39)
[2021-06-06] MEDS ORDERED: MAGNESIUM SULFATE 4 GM/100 ML BAG IV ONE (22:04)
[2021-06-06 22:06] LABS: Basophils # (Auto) 0.1 K/mm3 (0.0-0.1); Basophils % (Auto) 1.1 % (0.0-1.8); Eosinophils # (Auto) 0.4 K/mm3 (0.0-0.4); Hematocrit 36.2 % (30.3-42.9); Lymphocytes # (Auto) 2.5 K/mm3 (1.2-5.4); Lymphocytes % (Auto) 23.8 % (13.4-35.0); Mean Corpuscular HGB Conc 33 % (30-34); Mean Corpuscular Volume 79 fl (79-97); Monocytes # (Auto) 0.7 K/mm3 (0.0-0.8); Monocytes % (Auto) 6.3 % (0.0-7.3); Platelet Count 487 K/mm3 (140-440); Red Blood Count 4.58 M/mm3 (3.65-5.03); Red Cell Distribution Width 12.8 % (13.2-15.2)
[2021-06-06 22:17] LABS: Alanine Aminotransferase 12 units/L (7-56); Albumin 3.1 g/dL (3.9-5); Blood Urea Nitrogen 9 mg/dL (7-17); Calcium 8.4 mg/dL (8.4-10.2); Hemolysis Index 4; INR 0.86 (0.87-1.13)
[2021-06-06 22:18] LABS: Partial Thromboplastin Time 30.8 Sec. (24.2-36.6)
[2021-06-06 22:21] LABS: BUN/Creatinine Ratio 13
--- NOTE | 2021-06-06 23:07 | Cat Scan Report ---
CT HEAD WITHOUT CONTRAST INDICATION / CLINICAL INFORMATION: Post- headache. TECHNIQUE: CT head was performed without administration of intravenous contrast. All CT scans at this location are performed using CT dose reduction for ALARA by means of automated exposure control. COMPARISON: None available. FINDINGS: CEREBRAL HEMISPHERES: There is no evidence of large territorial infarction or significant abnormality of nolan-white matter differentiation. Ventricles within normal limits. No midline shift. Basal ciste rns patent. HEMORRHAGE: None. CEREBELLUM / BRAINSTEM: No significant abnormality. ORBITS: No significant abnormality. SOFT TISSUES: No significant abnormality. SKULL: No significant abnormality. PARANASAL SINUSES / MASTOID AIR CELLS: Partial opacification of multiple anterior ethmoid air cells. Small mucous retention cyst right maxillary sinus. ADDITIONAL FINDINGS: None. IMPRESSION: 1. No acute intracranial abnormality. Signer Name: Beny Patel II, MD Signed: 06/06/2021 11:02 PM Workstation Name: [id number]
--- NOTE | 2021-06-06 23:15 | Cat Scan Report ---
CTA CHEST WITH CONTRAST INDICATION / CLINICAL INFORMATION: Dyspnea, Post-, CHF vs P.E.. TECHNIQUE: Axial CT images were obtained through the chest after injection of 100 cc Omnipaque 350 IV contrast. 3 plane MIP and/or 3D reconstructions were produced. All CT scans at this location are per formed using CT dose reduction for ALARA by means of automated exposure control. COMPARISON: None available. FINDINGS: VASCULAR FINDINGS: PULMONARY ARTERY: Pulmonary artery is normal in size. No filling defects are present compatible with pulmonary artery embolus.. THORACIC AORTA: No significant abnormality. CORONARY ARTERY CALCIFICATION: Absent -- None. NONVASCULAR FINDINGS: LOWER NECK: Soft tissues and musculature of the lower neck demonstrate no significant abnormality. Th e thyroid demonstrates no significant abnormality. HEART: No significant abnormality. MEDIASTINUM / CONNIE: Small amount residual thymus is demonstrated in the anterior mediastinum. ESOPHAGUS: No significant abnormality. LYMPH NODES: No adenopathy within the axilla, mediastinum, or connie. LUNGS: Lungs are blurred by motion. Bilateral dependent pleural effusions are present with some pleur al fluid extending within the left major fissure. PLEURA: No pneumothorax. THORACIC SOFT TISSUES: No significant abnormality of the chest wall or upper thoracic musculature. BONES: No significant skeletal abnormalities. ADDITIONAL CHEST FINDINGS: Appearance of the breast soft tissues compatible with . UPPER ABDOMEN: Vicarious excretion of contrast versus layering small gallstones. IMPRESSION: 1. No CT evidence for pulmonary embolism. 2. Small dependent bilateral pleural effusions slightly larger on the left than right. 3. Gallstones are not excluded. Signer Name: Beny Patel II, MD Signed: 06/06/2021 11:11 PM Workstation Name: [id number]
[2021-06-06] MEDS ORDERED: FUROSEMIDE 40 MG/4 ML INJ IV ONE (23:18)
--- NOTE | 2021-06-07 00:03 | Vascular Lab Report ---
DUPLEX DOPPLER LOWER EXTREMITY VEINS, BILATERAL INDICATION / CLINICAL INFORMATION: Bilateral lower extremity swelling. TECHNIQUE: Duplex doppler imaging was performed through the veins of both lower extremities using jag ous compression and other maneuvers. COMPARISON: None available. FINDINGS: RIGHT COMMON FEMORAL VEIN: Negative. RIGHT FEMORAL VEIN: Negative. RIGHT POPLITEAL VEIN: Negative. RIGHT CALF VEINS: Negative. LEFT COMMON FEMORAL VEIN: Negative. LEFT FEMORAL VEIN: Negative. LEFT POPLITEAL VEIN: Negative. LEFT CALF VEINS: Negative. ADDITIONAL FINDINGS: None. IMPRESSION: 1. No sonographic evidence for DVT in either lower extremity. Signer Name: Beny Patel II, MD Signed: 06/06/2021 11:59 PM Workstation Name: [id number]
[2021-06-07] MEDS ORDERED: ACETAMINOPHEN 325 MG TAB PO PRN (01:22)
[2021-06-07] MEDS ORDERED: MORPHINE 2 MG/1 ML INJ IV PRN (01:22)
[2021-06-07] MEDS ORDERED: ALBUTEROL 2.5 MG/3 ML NEBU IH PRN (01:22)
[2021-06-07] MEDS ORDERED: ONDANSETRON 4 MG/2 ML INJ IV PRN (01:22)
[2021-06-07] MEDS ORDERED: HYDROmorphone 1 MG/1 ML INJ IV PRN (01:22)
--- NOTE | 2021-06-07 01:30 | History and Physical Report ---
History of Present Illness Date of examination: 06/07/21 Date of admission: 06/07/21 Chief complaint: Shortness of breath Swollen feet History of present illness: 25-year-old female, who recently delivered at this hospital, presenting to the ER today with a complaint of headache, shortness of breath, orthopnea, lower extremity swelling, and right lateral thigh pain.She has lower extremity edema, hypertension. She also describes headache and nonspecific visual disturbance. Start patient on magnesium, give hydralazine. EKG nonspecific. CT scan brain negative for acute findings. CTA chest suggests congestive heart failure without pulmonary embolism. Patient BNP is 673.6. Admit the patient to put the patient on IV Lasix we will also order echocardiogram OBG BATCHING OPERATOR will see the patient in consultation Past History Past Medical History: No medical history, other () Past Surgical History: No surgical history Social history: no significant social history Family history: no significant family history Medications and Allergies Allergies Allergy/AdvReac Type Severity Reaction Status Date / Time No Known Allergies Allergy Unverified 05/27/21 18:19 Home Medications Medication Instructions Recorded Confirmed Last Taken Type Aspirin [Vazalore] 81 mg PO DAILY 05/28/21 05/28/21 05/27/21 History Vit-Fe Fumar-FA [ 1 tab PO QDAY 05/28/21 05/28/21 05/27/21 History Vitamin] ursodioL [Ursodiol] 300 mg PO DAILY 05/28/21 05/28/21 05/27/21 History Lidocain2.5%/Prilocai2.5% [Emla] 1 applic TP ONCE #1 tube 05/29/21 Unknown Rx Active Meds: Active Medications Acetaminophen (Acetaminophen 325 Mg Tab) 650 mg PO Q4H PRN PRN Reason: Pain MILD(1-3)/Fever >100.5/[place] Albuterol (Albuterol 2.5 Mg/3 Ml Nebu) 2.5 mg IH Q3HRT PRN PRN Reason: Shortness Of Breath Albuterol/Ipratropium (Ipratropium/Albuterol Sulfate 3 Ml Ampul.Neb) 1 ampul IH Q6HRT [facility] Famotidine (Famotidine 20 Mg Tab) 20 mg PO BID [facility] Furosemide (Furosemide 40 Mg/4 Ml Inj) 40 mg IV QDAY [facility] Heparin Sodium (Porcine) (Heparin 5,000 Unit/1 Ml Vial) 5,000 unit SUB-Q Q8HR [facility] Hydromorphone HCl (Hydromorphone 1 Mg/1 Ml Inj) 0.5 mg IV Q3H PRN PRN Reason: Pain , Severe (7-10) Magnesium Sulfate (Magnesium Sulfate 4gm/100ml) 4 gm in 100 mls @ 25 mls/hr IV ONCE ONE Stop: 06/07/21 02:03 Last Admin: 06/06/21 22:14 Dose: 25 mls/hr Lidocaine/Prilocaine (Emla Cream 5 Gm) 1 applic TP ONCE [facility] Miscellaneous Medication (Aspirin [Vazalore]) 81 mg PO DAILY [facility] Miscellaneous Medication (Ursodiol [Ursodiol]) 300 mg PO DAILY [facility] Morphine Sulfate (Morphine 2 Mg/1 Ml Inj) 2 mg IV Q4H PRN PRN Reason: Pain, Moderate (4-6) Multivitamins/Iron/Calcium ( [id number] Fumarate-Folic Acid Vit Tab) 1 each PO QDAY [facility] Ondansetron HCl (Ondansetron 4 Mg/2 Ml Inj) 4 mg IV Q8H PRN PRN Reason: Nausea And Vomiting Sodium Chloride (Sodium Chloride 0.9% 10 Ml Flush Syringe) 10 ml IV BID [facility] Sodium Chloride (Sodium Chloride 0.9% 10 Ml Flush Syringe) 10 ml IV PRN PRN PRN Reason: LINE FLUSH Review of Systems All systems: negative Cardiovascular: orthopnea, edema, shortness of breath, dyspnea on exertion Respiratory: shortness of breath, dyspnea on exertion Exam - Constitutional Vitals: Temp Pulse Resp BP Pulse Ox 98 F 93 H 16 132/82 97 06/07/21 00:00 06/07/21 00:00 06/07/21 00:00 06/07/21 00:40 06/07/21 01:06 General appearance: Present: no acute distress, well-nourished - EENT Eyes: Present: PERRL ENT: hearing intact, clear oral mucosa - Neck Neck: Present: supple, normal ROM - Respiratory Respiratory effort: normal Respiratory: bilateral: rales - Cardiovascular Heart Sounds: Present: S1 & S2. Absent: rub, click - Extremities Extremities: pulses symmetrical, No edema Peripheral Pulses: within normal limits - Abdominal General gastrointestinal: Present: soft, non-tender, non-distended, normal bowel sounds Female genitourinary: Present: normal - Integumentary Integumentary: Present: clear, warm, dry - Musculoskeletal Musculoskeletal: gait normal, strength equal bilaterally - Psychiatric Psychiatric: appropriate mood/affect, intact judgment & insight - Neurologic Neurologic: CNII-XII intact, moves all extremities HEART Score - HEART Score Troponin: Troponin T < 0.010 ng/mL (0.00-0.029) 06/06/21 21:36 Results - Labs CBC & Chem 7: 06/06/21 21:36 06/06/21 21:36 Labs: Laboratory Last Values WBC 10.6 K/mm3 (4.5-11.0) 06/06/21 21:36 RBC 4.58 M/mm3 (3.65-5.03) 06/06/21 21:36 Hgb 12.0 gm/dl (10.1-14.3) 06/06/21 21:36 Hct 36.2 % (30.3-42.9) 06/06/21 21:36 MCV 79 fl (79-97) 06/06/21 21:36 MCH 26 pg (28-32) L 06/06/21 21:36 MCHC 33 % (30-34) 06/06/21 21:36 RDW 12.8 % (13.2-15.2) L 06/06/21 21:36 Plt Count 487 K/mm3 (140-440) H 06/06/21 21:36 Lymph % (Auto) 23.8 % (13.4-35.0) 06/06/21 21:36 [place] % (Auto) 6.3 % (0.0-7.3) 06/06/21 21:36 Eos % (Auto) 4.0 % (0.0-4.3) 06/06/21 21:36 Baso % (Auto) 1.1 % (0.0-1.8) 06/06/21 21:36 Lymph # (Auto) 2.5 K/mm3 (1.2-5.4) 06/06/21 21:36 [place] # (Auto) 0.7 K/mm3 (0.0-0.8) 06/06/21 21:36 Eos # (Auto) 0.4 K/mm3 (0.0-0.4) 06/06/21 21:36 Baso # (Auto) 0.1 K/mm3 (0.0-0.1) 06/06/21 21:36 Seg Neutrophils % 64.8 % (40.0-70.0) 06/06/21 21:36 Seg Neutrophils # 6.9 K/mm3 (1.8-7.7) 06/06/21 21:36 PT 12.6 Sec. (12.2-14.9) 06/06/21 21:36 INR 0.86 (0.87-1.13) L 06/06/21 21:36 APTT 30.8 Sec. (24.2-36.6) 06/06/21 21:36 D-Dimer 671.35 ng/mlDDU (0-234) H 06/06/21 21:36 Sodium 140 mmol/L (137-145) 06/06/21 21:36 Potassium 3.9 mmol/L (3.6-5.0) 06/06/21 21:36 Chloride 106.1 mmol/L (98-107) 06/06/21 21:36 Carbon Dioxide 21 mmol/L (22-30) L 06/06/21 21:36 Anion Gap 17 mmol/L 06/06/21 21:36 BUN 9 mg/dL (7-17) 06/06/21 21:36 Creatinine 0.7 mg/dL (0.6-1.2) 06/06/21 21:36 Estimated GFR > 60 ml/min 06/06/21 21:36 BUN/Creatinine Ratio 13 % 06/06/21 21:36 Glucose 82 mg/dL (65-100) 06/06/21 21:36 Calcium 8.4 mg/dL (8.4-10.2) 06/06/21 21:36 Magnesium 1.70 mg/dL (1.7-2.3) 06/06/21 21:36 Total Bilirubin 0.20 mg/dL (0.1-1.2) 06/06/21 21:36 AST 8 units/L (5-40) 06/06/21 21:36 ALT 12 units/L (7-56) 06/06/21 21:36 Alkaline Phosphatase 95 units/L (35-129) 06/06/21 21:36 Troponin T < 0.010 ng/mL (0.00-0.029) 06/06/21 21:36 NT-Pro-B Natriuret Pep 673.6 pg/mL (0-450) H 06/06/21 21:36 Total Protein 5.8 g/dL (6.3-8.2) L 06/06/21 21:36 Albumin 3.1 g/dL (3.9-5) L 06/06/21 21:36 Albumin/Globulin Ratio 1.1 % 06/06/21 21:36 - Imaging and Cardiology Chest x-ray: report reviewed Assessment and Plan VTE prophylaxis?: Chemical Plan of care discussed with patient/family: Yes - Patient Problems (1) cardiomyopathy Current Visit: Yes Status: Acute Plan to address problem: Admit the patient to the medical telemetry. Cardiac diet. Lasix 40 mg IV every 12 hours. DuoNeb by nebulizer every 4 hours. Fluid restriction. Echocardiogram. Consult cardiology if needed (2) Preeclampsia in period Current Visit: Yes Status: Acute Plan to address problem: Patient is started on magnesium and hydralazine 10 mg IV every 6 hours as needed. UNLEAVENED DOUGH MIXER will see the patient for preeclampsia and further management (3) Shortness of breath Current Visit: Yes Status: Acute Plan to address problem: Cardiac diet. Lasix 40 mg IV every 12 hours. DuoNeb by nebulizer every 4 hours. Fluid restriction. Echocardiogram. Consult cardiology if needed (4) Headache Current Visit: Yes Status: Acute Plan to address problem: Tylenol 650 mg p.o. every 6 hours as needed. Morphine 2 mg IV every 4 hours as needed (5) Swelling of lower extremity Current Visit: Yes Status: Acute Plan to address problem: Cardiac diet. Lasix 40 mg IV every 12 hours. DuoNeb by nebulizer every 4 amanda rs. Fluid restriction. Echocardiogram. Consult cardiology if needed (6) DVT prophylaxis Current Visit: Yes Status: Acute Plan to address problem: Paren 5000 units subcu every 8 hours for DVT prophylaxis. Pepcid 20 mg p.o. twice daily for GI prophylaxis. Patient is a full code
[2021-06-07 01:35] LABS: Bilirubin,Urine NEG (Negative); Blood,Urine MOD (Negative); Color,Urine Red (Yellow); Urobilinogen,Urine < 2.0 mg/dL (<2.0)
[2021-06-07] MEDS ORDERED: hydrALAZINE 20 MG/1 ML INJ IV PRN (01:36)
[2021-06-07 01:46] LABS: RBC,Urine < 1.0 /HPF (0.0-6.0); WBC,Urine < 1.0 /HPF (0.0-6.0)
[2021-06-07] MEDS ORDERED: EMLA CREAM 5 GM TP SCH (02:00)
[2021-06-07] MEDS: IPRATROPIUM/ALBUTEROL SULFATE 3 ML AMPUL.NEB IH SCH ×4 (02:46→21:35)
[2021-06-07] MEDS: HEPARIN 5,000 UNIT/1 ML VIAL SUB-Q SCH ×4 (06:18→22:10)
[2021-06-07] MEDS ORDERED: URSODIOL 300 MG PO SCH (10:00)
[2021-06-07] MEDS ORDERED: NON-FORMULARY EACH (Aspirin [Vazalore] 81 MG Capsule) PO SCH (10:00)
[2021-06-07 10:13] LABS: Bilirubin,Urine NEG (Negative); Blood,Urine NEG (Negative); Color,Urine Straw (Yellow); Mucus,Urine FEW /HPF; Protein,Urine <15 mg/dL mg/dL (Negative); Urobilinogen,Urine < 2.0 mg/dL (<2.0); WBC,Urine < 1.0 /HPF (0.0-6.0)
--- NOTE | 2021-06-07 10:26 | Electrocardiograph Report ---
[facility] Test Date: 2021-06-06 Test Time: 21:34:37 Pat Name: RAMSES ASHLEY Department: Room: [place] [address] Gender: F Mail Delivery Supervisor: yodit : 1995 Requested By: MANJU REED Order Number: [id number] Reading MD: Behzad Combs Measurements Intervals [place] Rate: 67 P: 52 NM: 172 QRS: 53 QRSD: 76 T: 56 QT: 411 QTc: 433 Interpretive Statements Sinus rhythm Probable left atrial enlargement No previous ECG available for comparison Electronically Signed On 06-07-2021 10:26:02 EDT by Behzad Combs
[2021-06-07 10:28] LABS: Creatinine,Urine 46.1 mg/dL (0.1-20.0); Protein/Creatinine Ratio,Urine 0.13
[2021-06-07] MEDS: FUROSEMIDE 40 MG/4 ML INJ IV SCH (10:59)
[2021-06-07] MEDS: ASPIRIN EC 81 MG TAB PO SCH (11:01)
[2021-06-07] MEDS: FAMOTIDINE 20 MG TAB PO SCH ×2 (11:01→22:03)
[2021-06-07] MEDS: PRENATAL VIT27-FE FUMARATE-FOLIC ACID VIT TAB PO SCH (11:49)
--- NOTE | 2021-06-07 14:28 | Consultation ---
History of Present Illness - Reason for Consult Consult date: 06/07/21 post pre ecclampsia vs cardiomyopathy - History of Present Illness This is a 25 year-old female PPD#10 s/p who presented to ED with with a complaint of headache, shortness of breath, orthopnea, lower extremity swelling, and right lateral thigh pain. Her was complicated by obesity and cholestasis of . She was admited 05/27/2021 for IOL d/t Cholestasis. Intrapartum and immediate course was Normal, she was allowed home on PPD#2. She was evaluated in the office yesterday stating she has been short of breath since May 31 and also has noticed some edema to her feet that has not gone down since delivery. States shortness of breath occurs when she is trying to lay down to sleep. Does not have shortness of breath on exertion. Since arrival to ED she was noted to have elevated BP's however only one severe range BP recorded. Now she states her headache has resolved and denies RUQ pain or visual disturbances. Past History : 1 Date of Delivery: 05/28/2021 Delivery Type: Vaginal Gender: male Weight: 6.31 lbs : 1 minute: 8 5 minutes: 9 Past Medical History: Reviewed and updated today: Cholestasis of General Comments - FH: DM-MGF CHF-mother Social History: single fob participate [employer] service Risk Factors: Smoked Tobacco Use: Former smoker Cigarettes: Yes Year Quit: 10/2020 Smokeless Tobacco Use: Never Passive Smoke Exposure: no HIV High Risk Behavior: no Exercise: no Seatbelt Use: 100 % Alcohol Use: no Drug Use: no Past Medical History NEO Exposure: negative Infertility: negative Uterine Anomaly: negative Uterine Surgery (not C/S): negative Other Gynecologic Problems: negative Medical History Comments: neg Family Hx: DM-MGF CHF-mother Social Hx: single fob participate [employer] service Infection History Hx of STD: none HIV Risk Eval: no Varicella/Chicken Pox Status: Previous Disease Genetic History Congenital Heart Defect: Mom: no Dad: no Juliet Disease: Mom: no Dad: no Thalassemia Mom: no Dad: no Neural Tube Defect Mom: no Dad: no Down's Syndrome Mom: no Dad: no Jesus Manuel-Sachs Mom: no Dad: no Sickle Cell Disease/Trait Mom: no Dad: no Hemophilia Mom: no Dad: no Muscular Dystrophy Mom: no Dad: no Cystic Fibrosis Mom: no Dad: no Powers Chorea Mom: no Dad: no Mental Retardation Mom: no Dad: no Fragile X Mom: no Dad: no Other Genetic/Chromosomal Disorder Mom: no Dad: no Child w/other defect Mom: no Dad: no Enviromental Exposures Xray Exposure: no Medication, drug, or alcohol use since LMP: no Chemical/Other Exposure: no Exposure to Cat Liter: no Hx of Parvovirus (Fifth Disease): no Occupational Exposure to Children: none Active Medications (reviewed today): vitamin #49-iron-FA 6.75 mg iron- 200 mcg tablet ( vitamin #49-iron-fa) Tylenol 325 mg tablet (acetaminophen) aspirin 81 mg capsule (aspirin) ursodiol 300mg BID Past History Past Medical History: No medical history, other () Past Surgical History: No surgical history Social history: no significant social history Family history: no significant family history Medications and Allergies Allergies Allergy/AdvReac Type Severity Reaction Status Date / Time No Known Allergies Allergy Unverified 05/27/21 18:19 Active Meds: Active Medications Acetaminophen (Acetaminophen 325 Mg Tab) 650 mg PO Q4H PRN PRN Reason: Pain MILD(1-3)/Fever >100.5/[place] Albuterol (Albuterol 2.5 Mg/3 Ml Nebu) 2.5 mg IH Q3HRT PRN PRN Reason: Shortness Of Breath Albuterol/Ipratropium (Ipratropium/Albuterol Sulfate 3 Ml Ampul.Neb) 1 ampul IH Q6HRT [facility] Last Admin: 06/07/21 13:58 Dose: Not Given Aspirin (Aspirin Ec 81 Mg Tab) 81 mg PO QDAY [facility] Last Admin: 06/07/21 11:01 Dose: 81 mg Famotidine (Famotidine 20 Mg Tab) 20 mg PO BID [facility] Last Admin: 06/07/21 11:01 Dose: 20 mg Furosemide (Furosemide 40 Mg/4 Ml Inj) 40 mg IV QDAY [facility] Last Admin: 06/07/21 10:59 Dose: 40 mg Heparin Sodium (Porcine) (Heparin 5,000 Unit/1 Ml Vial) 5,000 unit SUB-Q Q8HR [facility] Last Admin: 06/07/21 13:57 Dose: Not Given Hydralazine HCl (Hydralazine 20 Mg/1 Ml Inj) 10 mg IV Q6H PRN PRN Reason: Blood Pressure Hydromorphone HCl (Hydromorphone 1 Mg/1 Ml Inj) 0.5 mg IV Q3H PRN PRN Reason: Pain , Severe (7-10) Morphine Sulfate (Morphine 2 Mg/1 Ml Inj) 2 mg IV Q4H PRN PRN Reason: Pain, Moderate (4-6) Multivitamins/Iron/Calcium ( [id number] Fumarate-Folic Acid Vit Tab) 1 each PO QDAY [facility] Last Admin: 06/07/21 11:49 Dose: 1 each Ondansetron HCl (Ondansetron 4 Mg/2 Ml Inj) 4 mg IV Q8H PRN PRN Reason: Nausea And Vomiting Sodium Chloride (Sodium Chloride 0.9% 10 Ml Flush Syringe) 10 ml IV BID [facility] Last Admin: 06/07/21 11:02 Dose: 10 ml Sodium Chloride (Sodium Chloride 0.9% 10 Ml Flush Syringe) 10 ml IV PRN PRN PRN Reason: LINE FLUSH Exam - Constitutional Vitals: Temp Pulse Resp BP Pulse Ox 98 F 120 H 26 H 128/81 96 06/07/21 00:00 06/07/21 13:30 06/07/21 13:30 06/07/21 13:30 06/07/21 13:30 General appearance: Present: no acute distress - Respiratory Respiratory effort: normal - Abdominal General gastrointestinal: Present: soft, non-tender, non-distended Female genitourinary: Present: normal, other (blood noted at introitus, minimal lochia, superficial (R) labia laceration, hemostatic) - Integumentary Integumentary: Present: clear, warm, dry - Psychiatric Psychiatric: appropriate mood/affect, intact judgment & insight, memory intact, cooperative - Neurologic Neurologic: CNII-XII intact, other (DTR's +, normal) Results - Labs CBC & Chem 7: 06/06/21 21:36 06/06/21 21:36 Labs: Abnormal lab results 06/06/21 06/06/21 06/06/21 Range/Units 21:36 21:36 21:36 MCH 26 L (28-32) pg RDW 12.8 L (13.2-15.2) % Plt Count 487 H (140-440) K/mm3 INR 0.86 L (0.87-1.13) D-Dimer 671.35 H (0-234) ng/mlDDU Carbon Dioxide 21 L (22-30) mmol/L NT-Pro-B Natriuret Pep (0-450) pg/mL Total Protein 5.8 L (6.3-8.2) g/dL Albumin 3.1 L (3.9-5) g/dL Urine pH (5.0-7.0) Urine Creatinine (0.1-20.0) mg/dL 06/06/21 06/07/21 06/07/21 Range/Units 21:36 00:39 09:45 MCH (28-32) pg RDW (13.2-15.2) % Plt Count (140-440) K/mm3 INR (0.87-1.13) D-Dimer (0-234) ng/mlDDU Carbon Dioxide (22-30) mmol/L NT-Pro-B Natriuret Pep 673.6 H (0-450) pg/mL Total Protein (6.3-8.2) g/dL Albumin (3.9-5) g/dL Urine pH 8.0 H (5.0-7.0) Urine Creatinine 46.1 H (0.1-20.0) mg/dL - Imaging and Cardiology EKG: report reviewed Chest x-ray: report reviewed CT scan - chest: report reviewed CT Scan - head: report reviewed Venous US: report reviewed Assessment and Plan - Patient Problems (1) hypertension Current Visit: Yes Status: Acute Plan to address problem: At this time, she does not meet criteria for MgSO4 therapy (BP<160/110, no neurologic symptoms, normal PIH labs, Urine P:C ratio<0.3) however recommend antiHTN therapy to keep BPs' 140-150/90-100. May d/c bhatia catheter since she is not receiving MgSO4 therapy however continue strict I/O's. Will follow with you.
--- NOTE | 2021-06-07 18:06 | Progress Note ---
Assessment and Plan Assessment and plan: #Possible cardiomyopathy #Swelling of lower extremities #Possible preeclampsia in -Continue IV Lasix 40 mg every 12 hours, fluid restriction, pending TTE to evaluate EF, and continue cardiac diet -Continue medical telemetry -Consider Cardiology consult if needed -AGRICULTURAL EQUIPMENT OPERATOR consulted; appreciate recs -Starting po labetolol 100mg BID -D-dimer 671; unremarkable bilateral venous dopplers of lower extremities #Moderate protien caloric malnutrition -Albumin 3.1 -Continue dietary supplementation #Morbid obesity #Weight loss counseling #Exercise counseling - BMI 44.8 - Counseled patient on the importance of weight loss, incorporating exercise, and dietary changes (lean meats, fresh fruits and vegetables, and water intake). Patient expresses understanding. - Time: +15 min #Advanced care planning -Disease education conducted, care plan discussed, diagnoses discussed, prognosis discussed, and patient acknowledges understanding with care plan -Time: +30 min Disposition Plan: Continue medical management Total Time Spent with Patient (Minutes): 45 min History Interval history: No acute events overnight. Hospitalist Physical - Constitutional Vitals: Temp Pulse Resp BP Pulse Ox 98 F 120 H 26 H 128/81 96 06/07/21 00:00 06/07/21 13:30 06/07/21 13:30 06/07/21 13:30 06/07/21 13:30 General appearance: Present: no acute distress, well-nourished, obese - EENT Eyes: Present: PERRL, EOM intact ENT: hearing intact, clear oral mucosa, dentition normal - Neck Neck: Present: supple, normal ROM - Respiratory Respiratory effort: normal Respiratory: bilateral: CTA - Cardiovascular Rhythm: regular Heart Sounds: Present: S1 & S2 - Extremities Extremities: no ischemia, pulses intact, pulses symmetrical, No edema, normal temperature, normal color, Full ROM Peripheral Pulses: within normal limits - Abdominal General gastrointestinal: soft, non-tender, non-distended, normal bowel sounds - Integumentary Integumentary: Present: clear, warm, dry - Psychiatric Psychiatric: appropriate mood/affect, intact judgment & insight, memory intact, cooperative - Neurologic Neurologic: CNII-XII intact, moves all extremities - Allied Health Allied health notes reviewed: nursing HEART Score - HEART Score Troponin: Troponin T < 0.010 ng/mL (0.00-0.029) 06/06/21 21:36 Results - Labs CBC & Chem 7: 06/06/21 21:36 06/06/21 21:36 Labs: Laboratory Last Values WBC 10.6 K/mm3 (4.5-11.0) 06/06/21 21:36 RBC 4.58 M/mm3 (3.65-5.03) 06/06/21 21:36 Hgb 12.0 gm/dl (10.1-14.3) 06/06/21 21:36 Hct 36.2 % (30.3-42.9) 06/06/21 21:36 MCV 79 fl (79-97) 06/06/21 21:36 MCH 26 pg (28-32) L 06/06/21 21:36 MCHC 33 % (30-34) 06/06/21 21:36 RDW 12.8 % (13.2-15.2) L 06/06/21 21:36 Plt Count 487 K/mm3 (140-440) H 06/06/21 21:36 Lymph % (Auto) 23.8 % (13.4-35.0) 06/06/21 21:36 Rock % (Auto) 6.3 % (0.0-7.3) 06/06/21 21:36 Eos % (Auto) 4.0 % (0.0-4.3) 06/06/21 21:36 Baso % (Auto) 1.1 % (0.0-1.8) 06/06/21 21:36 Lymph # (Auto) 2.5 K/mm3 (1.2-5.4) 06/06/21 21:36 Rock # (Auto) 0.7 K/mm3 (0.0-0.8) 06/06/21 21:36 Eos # (Auto) 0.4 K/mm3 (0.0-0.4) 06/06/21 21:36 Baso # (Auto) 0.1 K/mm3 (0.0-0.1) 06/06/21 21:36 Seg Neutrophils % 64.8 % (40.0-70.0) 06/06/21 21:36 Seg Neutrophils # 6.9 K/mm3 (1.8-7.7) 06/06/21 21:36 PT 12.6 Sec. (12.2-14.9) 06/06/21 21:36 INR 0.86 (0.87-1.13) L 06/06/21 21:36 APTT 30.8 Sec. (24.2-36.6) 06/06/21 21:36 D-Dimer 671.35 ng/mlDDU (0-234) H 06/06/21 21:36 Sodium 140 mmol/L (137-145) 06/06/21 21:36 Potassium 3.9 mmol/L (3.6-5.0) 06/06/21 21:36 Chloride 106.1 mmol/L (98-107) 06/06/21 21:36 Carbon Dioxide 21 mmol/L (22-30) L 06/06/21 21:36 Anion Gap 17 mmol/L 06/06/21 21:36 BUN 9 mg/dL (7-17) 06/06/21 21:36 Creatinine 0.7 mg/dL (0.6-1.2) 06/06/21 21:36 Estimated GFR > 60 ml/min 06/06/21 21:36 BUN/Creatinine Ratio 13 % 06/06/21 21:36 Glucose 82 mg/dL (65-100) 06/06/21 21:36 Calcium 8.4 mg/dL (8.4-10.2) 06/06/21 21:36 Magnesium 2.20 mg/dL (1.7-2.3) 06/07/21 10:23 Total Bilirubin 0.20 mg/dL (0.1-1.2) 06/06/21 21:36 AST 8 units/L (5-40) 06/06/21 21:36 ALT 12 units/L (7-56) 06/06/21 21:36 Alkaline Phosphatase 95 units/L (35-129) 06/06/21 21:36 Troponin T < 0.010 ng/mL (0.00-0.029) 06/06/21 21:36 NT-Pro-B Natriuret Pep 673.6 pg/mL (0-450) H 06/06/21 21:36 Total Protein 5.8 g/dL (6.3-8.2) L 06/06/21 21:36 Albumin 3.1 g/dL (3.9-5) L 06/06/21 21:36 Albumin/Globulin Ratio 1.1 % 06/06/21 21:36 Urine Color Straw (Yellow) 06/07/21 09:45 Urine Turbidity Clear (Clear) 06/07/21 09:45 Urine pH 7.0 (5.0-7.0) 06/07/21 09:45 Ur Specific Dexter 1.014 (1.003-1.030) 06/07/21 09:45 Urine Protein <15 mg/dl mg/dL (Negative) 06/07/21 09:45 Urine Glucose (UA) Neg mg/dL (Negative) 06/07/21 09:45 Urine Ketones Tr mg/dL (Negative) 06/07/21 09:45 Urine Blood Neg (Negative) 06/07/21 09:45 Urine Nitrite Neg (Negative) 06/07/21 09:45 Urine Bilirubin Neg (Negative) 06/07/21 09:45 Urine Urobilinogen < 2.0 mg/dL (<2.0) 06/07/21 09:45 Ur Leukocyte Esterase Neg (Negative) 06/07/21 09:45 Urine WBC (Auto) < 1.0 /HPF (0.0-6.0) 06/07/21 09:45 Urine RBC (Auto) 1.0 /HPF (0.0-6.0) 06/07/21 09:45 Urine Mucus Few /HPF 06/07/21 09:45 Urine Creatinine 46.1 mg/dL (0.1-20.0) H 06/07/21 09:45 Protein/Creatinin Ratio 0.13 06/07/21 09:45 Urine Total Protein 6 mg/dL (5-11.8) 06/07/21 09:45 Active Medications - Current Medications Current Medications: Generic Name Dose Route Start Last Admin Trade Name Freq PRN Reason Stop Dose Admin Acetaminophen 650 mg 06/07/21 01:22 Acetaminophen 325 Mg Tab PO Q4H PRN Pain MILD(1-3)/Fever >100.5/[place] Albuterol 2.5 mg 06/07/21 01:22 Albuterol 2.5 Mg/3 Ml Nebu IH Q3HRT PRN Shortness Of Breath Albuterol/Ipratropium 1 ampul 06/07/21 02:00 06/07/21 13:58 Ipratropium/Albuterol Sulfate 3 Ml Ampul.Neb IH Not Given Q6HRT CAPRI Aspirin 81 mg 06/07/21 10:00 06/07/21 11:01 Aspirin Ec 81 Mg Tab PO 81 mg QDAY CAPRI Administration Famotidine 20 mg 06/07/21 10:00 06/07/21 11:01 Famotidine 20 Mg Tab PO 20 mg BID CAPRI Administration Furosemide 40 mg 06/07/21 10:00 06/07/21 10:59 Furosemide 40 Mg/4 Ml Inj IV 40 mg QDAY CAPRI Administration Heparin Sodium (Porcine) 5,000 unit 06/07/21 06:00 06/07/21 13:57 Heparin 5,000 Unit/1 Ml Vial SUB-Q Not Given Q8HR CAPRI Hydralazine HCl 10 mg 06/07/21 01:36 Hydralazine 20 Mg/1 Ml Inj IV Q6H PRN Blood Pressure Hydromorphone HCl 0.5 mg 06/07/21 01:22 Hydromorphone 1 Mg/1 Ml Inj IV Q3H PRN Pain , Severe (7-10) Labetalol HCl 100 mg 06/07/21 22:00 Labetalol 100 Mg Tab PO BID [facility] Morphine Sulfate 2 mg 06/07/21 01:22 Morphine 2 Mg/1 Ml Inj IV Q4H PRN Pain, Moderate (4-6) Multivitamins/Iron/Calcium 1 each 06/07/21 10:00 06/07/21 11:49 Eyn37-Fe Fumarate-Folic Acid Vit Tab PO 1 each QDAY CAPRI Administration Ondansetron HCl 4 mg 06/07/21 01:22 Ondansetron 4 Mg/2 Ml Inj IV Q8H PRN Nausea And Vomiting Sodium Chloride 10 ml 06/07/21 10:00 06/07/21 11:02 Sodium Chloride 0.9% 10 Ml Flush Syringe IV 10 ml BID CAPRI Administration Sodium Chloride 10 ml 06/07/21 01:22 Sodium Chloride 0.9% 10 Ml Flush Syringe IV PRN PRN LINE FLUSH Nutrition/Malnutrition Assess - Dietary Evaluation Nutrition/Malnutrition Findings: Nutrition Notes Start: 06/07/21 16:39 Freq: Status: Active Protocol: Document 06/07/21 16:39 JOSE LUIS (Rec: 06/07/21 16:48 JOSE LUIS [id number]) Nutrition Notes Need for Assessment generated from: MD Order,Education Initial or Follow up Brief Note Other Pertinent Diagnosis HTN vs Cardiomyopathy vs Preeclampsia , SOB, Headache, ... Current Diet Cardiac Diet (since B 06/07). Height 5 ft 4 in Weight 118.388 kg Orr Body Weight (kg) 54.54 BMI 44.8 Weight change and time frame None provided at admission. Weight Status Morbidly Obese Subjective/Other Information RD consult for nutrition education. No reports available on Pt's PO intake of meals at the time , will assess at F/U. Pt is on Room Air, O2 saturation @ 96%, according to Vital Signs notes. Pt still in critical condition , not a candidate for Nutrition Education at the time, will assess feasibility on F/U. Percent of energy/protein needs met: Prescribed Cardiac Diet provides for energy/protein needs (2,230 Kcal/85 g) during LOS. Nutrition Intervention Follow-Up By: 06/14/21 Additional Comments Nutrition education will be provided on F/U, if feasible. Continue monitoring food tolerance, %PO intake of meals , and BM.
--- NOTE | 2021-06-07 18:25 | Event Note ---
Date: 06/07/21 The patient was evaluated this morning, and she was found to be hemodynamically stable. #Possible cardiomyopathy #Swelling of lower extremities #Possible preeclampsia in -Continue IV Lasix 40 mg every 12 hours, fluid restriction, pending TTE to evaluate EF, and continue cardiac diet -Continue medical telemetry -Consider Cardiology consult if needed -PACKAGER HAND consulted; appreciate recs -Starting po labetolol 100mg BID -D-dimer 671; unremarkable bilateral venous dopplers of lower extremities #Moderate protein caloric malnutrition -Albumin 3.1 -Continue dietary supplementation #Morbid obesity #Weight loss counseling #Exercise counseling - BMI 44.8 - Counseled patient on the importance of weight loss, incorporating exercise, and dietary changes (lean meats, fresh fruits and vegetables, and water intake). Patient expresses understanding. - Time: +15 min #Coordination of CARE time: 30 minutes. Total visit time equals 30 or more minutes with greater than 50% spent [id number] on coordination of care and counseling. #Advanced care planning -Disease education conducted, care plan discussed, diagnoses discussed, prognosis discussed, and patient acknowledges understanding with care plan -Time: +30 min
[2021-06-08] MEDS: HEPARIN 5,000 UNIT/1 ML VIAL SUB-Q SCH (05:49)
[2021-06-08 06:03] LABS: Basophils # (Auto) 0.1 K/mm3 (0.0-0.1); Basophils % (Auto) 0.6 % (0.0-1.8); Eosinophils # (Auto) 0.4 K/mm3 (0.0-0.4); Hematocrit 35.7 % (30.3-42.9); Hemoglobin 11.8 gm/dl (10.1-14.3); Lymphocytes # (Auto) 1.9 K/mm3 (1.2-5.4); Lymphocytes % (Auto) 17.8 % (13.4-35.0); Mean Corpuscular HGB Conc 33 % (30-34); Mean Corpuscular Volume 79 fl (79-97); Monocytes # (Auto) 0.7 K/mm3 (0.0-0.8); Monocytes % (Auto) 6.1 % (0.0-7.3); Platelet Count 507 K/mm3 (140-440); Red Blood Count 4.55 M/mm3 (3.65-5.03); Red Cell Distribution Width 13.3 % (13.2-15.2)
[2021-06-08 06:24] LABS: Blood Urea Nitrogen 8 mg/dL (7-17); Calcium 8.6 mg/dL (8.4-10.2); Hemolysis Index 1
[2021-06-08 06:27] LABS: BUN/Creatinine Ratio 13
[2021-06-08] MEDS ORDERED: IPRATROPIUM/ALBUTEROL SULFATE 3 ML AMPUL.NEB IH SCH (08:00)
[2021-06-08] MEDS ORDERED: POTASSIUM CHLORIDE ER 20 MEQ TAB PO NR (08:30)
[2021-06-08 08:33] VITALS: BP 138/78
[2021-06-08] MEDS: ASPIRIN EC 81 MG TAB PO SCH (09:17)
[2021-06-08] MEDS: FAMOTIDINE 20 MG TAB PO SCH (09:17)
[2021-06-08] MEDS: PRENATAL VIT27-FE FUMARATE-FOLIC ACID VIT TAB PO SCH (09:17)
[2021-06-08] MEDS: FUROSEMIDE 40 MG/4 ML INJ IV SCH (10:45)
--- NOTE | 2021-06-08 11:59 | Discharge Summary ---
Providers - Providers Date of Admission: 06/07/21 01:22 Date of discharge: 06/08/21 Attending physician: NITA PRUITT MD 06/06/21 22:11 Consult to Physician [CONS] Urgent Comment: Consulting Provider: ROSA DEL RIO Physician Instructions: Reason For Exam: post pre ecclampsia vs cardiomyopathy 06/07/21 01:24 Consult to Dietitian/Nutrition [CONS] Routine Physician Instructions: Reason For Exam: Reason for Consult: Diet education Primary care physician: [facility] Hospitalization Reason for admission: Elevated blood pressure Condition: Serious Pertinent studies: Reviewed. Procedures: None. Hospital course: Patient is a 25-year-old female with past medical history of obesity and recent vaginal delivery approximately 7 days ago who presented to the ED with complaints of headache, shortness of breath, orthopnea, lower extremity edema, and right lateral thigh pain. On presentation the patient was found to be hypertensive but overall hemodynamically stable. The patient underwent CT head noncontrast that was unremarkable. Patient had remarkable lab of proBNP at 673.6. The patient was initiated on IV Lasix and admitted for management of possible cardiomyopathy. Obstetrics and gynecology was also consulted. Patient underwent TTE that was unremarkable for cardiomyopathy. Patient tolerated IV diuresis appropriately, and her peripheral edema has since resolved. Patient was initiated on p.o. labetalol 200 mg twice daily with improvement in her blood pressure. Patient is medically cleared for discharge. She will follow up with obstetrics and gynecology upon discharge. The patient was counseled that should her elevated blood pressure continue >6 weeks that she should follow with her primary care provider for further management. Disposition: 01 HOME / SELF CARE / HOMELESS Final Discharge Diagnosis (Prints w/discharge instructions): Swelling of lower extremities, moderate protein caloric malnutrition, morbid obesity, elevated bl ood pressure. Time spent for discharge: 45 min Core Measure Documentation - Palliative Care Palliative Care/ Comfort Measures: Not Applicable - Core Measures Any of the following diagnoses?: none Exam - Constitutional Vitals: Temp Pulse Resp BP Pulse Ox 98.0 F 92 H 18 138/78 97 06/08/21 08:32 06/08/21 08:32 06/08/21 08:32 06/08/21 08:32 06/08/21 08:53 General appearance: Present: no acute distress, well-nourished, obese - EENT Eyes: Present: PERRL, EOM intact ENT: hearing intact, clear oral mucosa, dentition normal - Neck Neck: Present: supple, normal ROM - Respiratory Respiratory effort: normal Respiratory: bilateral: CTA - Cardiovascular Rhythm: regular Heart Sounds: Present: S1 & S2 - Extremities Extremities: no ischemia, pulses intact, pulses symmetrical, No edema, normal temperature, normal color, Full ROM Peripheral Pulses: within normal limits - Abdominal General gastrointestinal: Present: soft, non-tender, non-distended, normal bowel sounds Female genitourinary: Present: deferred - Rectal Rectal Exam: deferred - Integumentary Integumentary: Present: clear, warm, dry - Musculoskeletal Musculoskeletal: strength equal bilaterally - Psychiatric Psychiatric: appropriate mood/affect, intact judgment & insight, memory intact, cooperative - Neurologic Neurologic: CNII-XII intact, moves all extremities - Allied Health Allied health notes reviewed: nursing Plan Activity: advance as tolerated Diet: regular Additional Instructions: Patient is a 25-year-old female with past medical history of obesity and recent vaginal delivery approximately 7 days ago who presented to the ED with complaints of headache, shortness of breath, orthopnea, lower extremity edema, and right lateral thigh pain. On presentation the patient was found to be hypertensive but overall hemodynamically stable. The patient underwent CT head noncontrast that was unremarkable. Patient had remarkable lab of proBNP at 673.6. The patient was initiated on IV Lasix and admitted for management of possible cardiomyopathy. Obstetrics and gynecology was also consulted. Patient underwent TTE that was unremarkable for cardiomyopathy. Patient tolerated IV diuresis appropriately, and her peripheral edema has since resolved. Patient was initiated on p.o. labetalol 200 mg twice daily with improvement in her blood pressure. Patient is medically cleared for discharge. She will follow up with obstetrics and gynecology upon discharge. The patient was counseled that should her elevated blood pressure continue >6 weeks that she should follow with her primary care provider for further management. Care Plan Goals: Patient is medically clear for discharge. Assessment: Patient is a 25-year-old female with past medical history of obesity and recent vaginal delivery approximately 7 days ago who presented to the ED with complaints of headache, shortness of breath, orthopnea, lower extremity edema, and right lateral thigh pain. On presentation the patient was found to be hypertensive but overall hemodynamically stable. The patient underwent CT head noncontrast that was unremarkable. Patient had remarkable lab of proBNP at 673.6. The patient was initiated on IV Lasix and admitted for management of possible cardiomyopathy. Obstetrics and gynecology was also consulted. Patient underwent TTE that was unremarkable for cardiomyopathy. Patient tolerated IV diuresis appropriately, and her peripheral edema has since resolved. Patient was initiated on p.o. labetalol 200 mg twice daily with improvement in her blood pressure. Patient is medically cleared for discharge. She will follow up with obstetrics and gynecology upon discharge. The patient was counseled that should her elevated blood pressure continue >6 weeks that she should follow with her primary care provider for further management. Follow up with: PRIMARY CAREMD [Primary Care Provider] - 3-5 Days Forms: Work/School Release Form Prescriptions: labetaloL [Labetalol 200mg TAB] 200 mg PO BID #30 tab
== END 2021-06-08 13:30 | disposition home or self-care (01) ==
LOC: ED 15:41 → INTOOBSV 06-07 01:22 → 4A 06-07 01:22
PROVIDERS: ADMIT Hospitalist; ATTEND Student in an Organized Health Care Education/Training Program
DX: O90.3 Peripartum cardiomyopathy (principal); O14.95 Unspecified pre-eclampsia, complicating the puerperium; O16.5 Unspecified maternal hypertension, complicating the puerperium; O90.9 Complication of the puerperium, unspecified; R06.02 Shortness of breath; R51.9 Headache, unspecified; M79.89 Other specified soft tissue disorders; E44.0 Moderate protein-calorie malnutrition; E66.01 Morbid (severe) obesity due to excess calories; Z79.82 Long term (current) use of aspirin; Z87.891 Personal history of nicotine dependence; Z79.899 Other long term (current) drug therapy; Z98.890 Other specified postprocedural states
CPT/HCPCS: 36415; 70450; 71045; 71275; 80048; 80053; 81001; 82570; 83735; 83880; 84156; 84484; 85025; 85379; 85610; 85730; 93005; 93970; 94640; 96365; 96366; 96375; 96376; 99291; C8929; G0378; J0360; J1200; J1940; J2765; J3475; Q9967; 93306; 96374; J1644